=== PATIENT | female | born 1945 | race Caucasian/White ===

== ENCOUNTER 2019-01-26 13:02 | Inpatient (IN) | payer OTHER ==
[2019-01-26] MEDS ORDERED: NS 1,000 ML IV ONE (13:08)
--- NOTE | 2019-01-26 13:12 | EDPHY ---
H & P Time Seen by Provider: 01/26/19 13:08 HPI/ROS: CHIEF COMPLAINT: Right arm and hip pain HISTORY OF PRESENT ILLNESS: The patient is a 73-year-old female who fell off of 2 steps at her daughter's house. She is complaining of right shoulder and hip pain. When paramedics arrived she was lying face down and they state that her shoulder looked deformed however when they rolled her over it seemed to self reduce. She has also been complaining of right hip pain with any movement of her right leg. It is not shortened or rotated. She states that she hit her head slightly but is not concerned about it. No neck pain. She has a history of rheumatoid arthritis, crest syndrome and rectal incontinence. Her record has atrial fibrillation listed but the patient denies this. She is not on any blood thinners. Severity: Moderate Modifying factors: None REVIEW OF SYSTEMS: Constitutional: denies: chills, fever, recent illness, recent injury EENTM: denies: blurred vision, double vision, nose congestion Respiratory: denies: cough, shortness of breath Cardiac: denies: chest pain, irregular heart rate, lightheadedness, palpitations Gastrointestinal/Abdominal: denies: abdominal pain, diarrhea, nausea, vomiting, blood streaked stools Genitourinary: denies: dysuria, frequency, hematuria, pain Musculoskeletal: See HPI Skin: denies: lesions, rash, jaundice, bruising Neurological: denies: headache, numbness, paresthesia, tingling, dizziness, weakness Hematologic/Lymphatic: denies: blood clots, easy bleeding, easy bruising Immunologic/allergic: denies: HIV/AIDS, transplant 10 systems reviewed and negative except as noted EXAM: GENERAL: Well-appearing, well-nourished and in no acute distress. HEAD: Atraumatic, normocephalic. EYES: Pupils equal round and reactive to light, extraocular movements intact, sclera anicteric, conjunctiva are normal. ENT: TMs normal, nares patent, oropharynx clear without exudates. Moist mucous membranes. NECK: Normal range of motion, supple without lymphadenopathy or JVD. LUNGS: Breath sounds clear to auscultation bilaterally and equal. No wheezes rales or rhonchi. HEART: Regular rate and rhythm without murmurs, rubs or gallops. ABDOMEN: Soft, nontender, normoactive bowel sounds. No guarding, no rebound. No masses appreciated. BACK: No CVA tenderness, no spinal tenderness, step-offs or deformities EXTREMITIES: Right distal humerus pain with movement of her right arm. No swelling or deformity of the shoulder. No tenderness. No clavicular tenderness. Normal range of motion of wrist and forearm. Right hip pain with rotation. No pain with axial loading. Not shortened. Normal pulses and sensation distally. NEUROLOGICAL: Cranial nerves II through XII grossly intact. Normal speech. 5/ 5 strength, normal movement in all extremities, normal sensation, normal reflexes PSYCH: Normal mood, normal affect. SKIN: Warm, dry, normal turgor, no visible rashes or lesions. Source: Patient Exam Limitations: No limitations - Medical/Surgical History Hx Asthma: No Hx Chronic Respiratory Disease: No Hx Diabetes: No Hx Cardiac Disease: No Hx Renal Disease: No Hx Cirrhosis: No Hx Alcoholism: No Hx HIV/AIDS: No Hx Splenectomy or Spleen Trauma: No Other PMH: HTN, A-fib, Hysterectomy, Thyroid CA, Melanoma, rheum. arth, crest syndrome, fibromyalgia - Family History Significant Family History: No pertinent family hx - Social History Smoking Status: Never smoked Alcohol Use: Sober Drug Use: None Constitutional: Initial Vital Signs Temperature (C) 36.6 C 01/26/19 13:12 Heart Rate 65 01/26/19 13:12 Respiratory Rate 16 01/26/19 13:12 Blood Pressure 163/92 H 01/26/19 13:12 O2 Sat (%) 95 01/26/19 13:12 O2 Delivery Mode Nasal Cannula O2 (L/minute) 5 Allergies/Adverse Reactions: hydrocodone [From Vicodin] Allergy (Verified 01/26/19 19:53) Nausea Home Medications: Medication Instructions Recorded Lansoprazole [Prevacid] 30 mg PO DAILY 04/12/15 Levothyroxine [Synthroid 137 mcg 137 mcg PO DAILY06 04/12/15 (*)] Losartan/Hydrochlorothiazide 1 each PO DAILY 04/12/15 [Losartan-Hctz 100-25 mg Tab] Potassium Cl [Klor-Con 10 meq (RX)] 10 meq PO DAILY 04/12/15 Acetaminophen [Tylenol ES 500 mg 1,000 mg PO Q6 PRN 01/26/19 (*)] Escitalopram Oxalate [Lexapro] 20 mg PO HS 01/26/19 Hydrocortisone [Cortef 10 mg (*)] 10 mg PO BID 01/26/19 Hydroxychloroquine Sulfate 200 mg PO BID 01/26/19 [Plaquenil 200 mg (*)] Pregabalin [Lyrica 75mg (*)] 225 mg PO HS 01/26/19 Sulfamethox/Tmp 800/160 mg 1 tab PO BID 01/26/19 [Bactrim Ds] celeCOXIB [Celebrex (*)] 200 mg PO BID 01/26/19 Medical Decision Making - Diagnostics Imaging: Discussed imaging studies w/ scallop cutter machine Radiologist ED Course/Re-evaluation: 1:50 p.m. I discussed the case with Dr. Fish who will plan to take the patient to the operating room this afternoon for her right hip. Right arm to be placed in a sling. Have paged hospitalist service for admission. Patient's last meal was last night. Did drink coffee this morning. 2:05 p.m. discussed the case with Dr. Bonilla who will admit. Differential Diagnosis: Partial list of the Differential diagnosis considered include but were not limited to; hip fracture, humerus fracture, shoulder dislocation, clavicle injury and although unlikely based on the history and physical exam, I also considered head injury, neck injury. - Data Points Laboratory Results: Laboratory Results 01/26/19 13:46 01/26/19 13:46 Medications Given: Acetaminophen (Tylenol) 650 mg PO Q4HRS PRN PRN Reason: Pain, Mild/Fever, Can Take PO Stop: 07/25/19 15:00 Last Admin: 01/27/19 18:11 Dose: 650 mg Hydrocodone Bitart/Acetaminophen ([place] 5/325) 1 - 2 tab PO Q4HRS PRN PRN Reason: Pain, Moderate Able to Take PO Stop: 02/05/19 15:00 Last Admin: 01/27/19 02:19 Dose: 1 tab Escitalopram Oxalate (Lexapro) 20 mg PO HS SOFI Stop: 07/25/19 20:59 Last Admin: 01/26/19 22:04 Dose: Not Given HCTZ/Losartan Potassium (Hyzaar 50/12.5) 2 tab PO DAILY SOFI Stop: 07/26/19 08:59 Last Admin: 01/27/19 09:07 Dose: Not Given Hydrocortisone (Cortef) 10 mg PO BID SOFI Stop: 07/25/19 20:59 Last Admin: 01/27/19 09:05 Dose: 10 mg Hydromorphone HCl (Dilaudid) 0.2 - 0.4 mg IVP Q2H PRN PRN Reason: Pain, Severe Unable to Take PO Stop: 02/05/19 15:00 Last Admin: 01/26/19 23:28 Dose: 0.2 mg Hydroxychloroquine Sulfate (Plaquenil) 200 mg PO BID SOFI PRN Reason: Protocol Stop: 02/25/19 20:59 Last Admin: 01/27/19 09:06 Dose: 200 mg Sodium Chloride (Ns) 1,000 mls @ 100 mls/hr IV CONT SOFI Stop: 07/25/19 15:14 Last Admin: 01/27/19 04:52 Dose: 1,000 mls Levothyroxine Sodium (Synthroid) 137 mcg PO DAILY06 SOFI Stop: 07/26/19 05:59 Last Admin: 01/27/19 06:26 Dose: 137 mcg Lorazepam (Ativan) 0.5 - 1 mg PO Q8HRS PRN PRN Reason: Anxiety, Able to Take PO Stop: 07/25/19 15:00 Last Admin: 01/27/19 09:22 Dose: 0.5 mg Oxycodone HCl (Oxycodone Ir) 5 - 10 mg PO Q3HRS PRN PRN Reason: Pain, Severe Able to Take PO Stop: 02/05/19 15:00 Last Admin: 01/27/19 18:10 Dose: 5 mg Pantoprazole Sodium (Protonix) 40 mg PO DAILY SOFI Stop: 07/26/19 08:59 Last Admin: 01/27/19 07:43 Dose: 40 mg Potassium Chloride (Klor-Con) 10 meq PO DAILY SOFI Stop: 07/26/19 08:59 Last Admin: 01/27/19 09:22 Dose: Not Given Pregabalin (Lyrica) 225 mg PO HS SOFI Stop: 07/25/19 20:59 Last Admin: 01/26/19 22:04 Dose: Not Given Trimethoprim/Sulfamethoxazole (Bactrim Ds) 1 ea PO BID SOFI PRN Reason: Protocol Stop: 02/25/19 20:59 Last Admin: 01/27/19 09:08 Dose: 1 ea Discontinued Medications Albuterol (Proventil Neb) 3 ml IH ONCE ONE Stop: 01/26/19 23:36 Last Admin: 01/26/19 22:42 Dose: 3 ml Albuterol/Ipratropium (Duoneb) 3 ml IH Q6HRS [facility] Stop: 07/25/19 17:59 Last Admin: 01/27/19 11:51 Dose: Not Given Bacitracin (Bacitracin Ointment Tube) Confirm Administered Dose 14.2 barbara TP .STK -MED ONE Stop: 01/26/19 21:49 Last Admin: 01/26/19 22:05 Dose: Not Given Bupivacaine HCl/Epinephrine Bitart (Bupivacaine/Epi) Confirm Administered Dose 30 ml .ROUTE .STK-MED ONE Stop: 01/26/19 19:28 Last Admin: 01/26/19 21:49 Dose: 4 ml Hydromorphone HCl (Dilaudid) 1 mg IVP EDNOW ONE Stop: 01/26/19 13:51 Last Admin: 01/26/19 13:52 Dose: 1 mg Hydromorphone HCl (Dilaudid) 0.4 mg IVP ONCALL ONE Stop: 01/26/19 19:46 Last Admin: 01/26/19 19:33 Dose: 0.4 mg Sodium Chloride (Ns) 1,000 mls @ 0 mls/hr IV ONCE ONE; Wide Open PRN Reason: Protocol Stop: 01/26/19 13:09 Last Admin: 01/26/19 13:37 Dose: 1,000 mls Lactated Ringer's (Lr) 1,000 mls @ 0 mls/hr IV ONCE ONE PRN Reason: Per Protocol Stop: 01/26/19 18:19 Last Admin: 01/26/19 18:33 Dose: 1,000 mls Cefazolin Sodium/Dextrose (Ancef) 100 mls @ 200 mls/hr IV Q8H SOFI PRN Reason: Protocol Stop: 01/27/19 12:29 Last Admin: 01/27/19 11:43 Dose: 100 mls Cefazolin Sodium/Dextrose (Ancef) 100 mls @ 200 mls/hr IV ONCALL ONE Stop: 01/26/19 20:29 Last Admin: 01/26/19 21:44 Dose: 100 mls Lidocaine HCl (Xylocaine-Mpf 1% Sdv) Confirm Administered Dose 15 ml .ROUTE .STK -MED ONE Stop: 01/26/19 19:31 Last Admin: 01/26/19 21:50 Dose: 4 ml Lidocaine HCl (Xylocaine-Mpf 1% Sdv) Confirm Administered Dose 15 ml .ROUTE .STK -MED ONE Stop: 01/26/19 19:31 Last Admin: 01/26/19 23:52 Dose: Not Given Departure - Departure Disposition: [facility] Inpatient Acute Clinical Impression: Fracture of proximal end of right humerus Qualifiers: Encounter type: initial encounter Fracture type: closed Fracture morphology: unspecified fracture morphology Qualified Code(s): S42.201A - Unspecified fracture of upper end of right humerus, initial encounter for closed fracture Closed right hip fracture Qualifiers: Encounter type: initial encounter Qualified Code(s): S72.001A - Fracture of unspecified part of neck of right femur, initial encounter for closed fracture Condition: Fair
[2019-01-26] MEDS ORDERED: HYDROmorphONE/DILAUDID 1 MG/ML INJ ONE (13:42)
[2019-01-26] MEDS ORDERED: HYDROmorphONE/DILAUDID 2 MG/ML INJ IVP ONE ×2 (13:50→19:45)
[2019-01-26 13:53] LABS: PLATELET COUNT 240 10^3/uL (150-400)
[2019-01-26 14:04] LABS: INR 1.22 (0.83-1.16); PROTIME(PATIENT) 14.9 SEC (12.0-15.0)
[2019-01-26] MEDS ORDERED: ONDANSETRON 4 MG/2 ML VIAL IVP PRN (15:01)
[2019-01-26] MEDS ORDERED: ONDANSETRON DISINTEGRATING 4 MG TAB PO PRN (15:01)
[2019-01-26] MEDS ORDERED: LORazepam 0.5 MG TAB PO PRN (15:01)
[2019-01-26] MEDS ORDERED: PROMETHAZINE HCL 25 MG/ML INJ IVP PRN (15:01)
--- NOTE | 2019-01-26 15:19 | PDGENHP ---
History and Physical - Chief Complaint fall, arm/hip pain - History of Present Illness 73 yo F with PMH that includes RA, thyroid CA, HTN, HLD presenting after trip and fall with resultant right arm and leg pain found to have acute fractures of right femoral neck and right proximal humerus. She notes pain immediately after the fall that is only mildly improved after receiving pain medications. She did not have any chest pain or pre syncopal sxs preceding her fall, she thinks she may have hit her head slightly with the fall but no significant pain or obvious injuries and no LOC. She lives in [place] and is here visiting her daughter currently. She notes that otherwise her health has been fairly good, but she has been having issues with at least several months of SOB, particularly with exertion. She notes that this limits her ability to walk very far, but she is still able to do normal ADLs. She has seen her PCP for this, but states that he did not order any tests and told her she had a sinus infection and started a course of abx. She says she occasionally will notice wheezing on exhalation. She denies swelling in her legs, she denies orthopnea or PND, she denies any chronic lung or heart issues. History Information - Allergies/Home Medication List Allergies/Adverse Reactions: vicodin Allergy (Mild, Uncoded 01/26/19 14:39) Anxiety Home Medications: Lansoprazole [Prevacid] 30 mg PO DAILY 04/12/15 [Last Taken 01/26/19] Levothyroxine [Synthroid 137 mcg (*)] 137 mcg PO DAILY06 04/12/15 [Last Taken ] Losartan/Hydrochlorothiazide [Losartan-Hctz 100-25 mg Tab] 1 each PO DAILY 04/12 [Last Taken 01/26/19] Potassium Cl [Klor-Con 10 meq (RX)] 10 meq PO DAILY 04/12/15 [Last Taken ] Acetaminophen [Tylenol ES 500 mg (*)] 1,000 mg PO Q6 PRN 01/26/19 [Last Taken Unknown] Escitalopram Oxalate [Lexapro] 20 mg PO HS 01/26/19 [Last Taken 01/25/19] Hydrocortisone [Cortef 10 mg (*)] 10 mg PO BID 01/26/19 [Last Taken 01/26/19] Hydroxychloroquine Sulfate [Plaquenil 200 mg (*)] 200 mg PO BID 01/26/19 [Last Taken 01/26/19] Pregabalin [Lyrica 75mg (*)] 225 mg PO HS 01/26/19 [Last Taken 01/25/19] Sulfamethox/Tmp 800/160 mg [Bactrim Ds] 1 tab PO BID 01/26/19 [Last Taken ] celeCOXIB [Celebrex (*)] 200 mg PO BID 01/26/19 [Last Taken 01/25/19 21:00] I have personally reviewed and updated: family history, medical history, social history, surgical history - Past Medical History arthritis (rheumatoid on chronic steroids/immune suppression), cancer (thyroid) , GERD, hypertension, hyperlipidemia, migraines - Surgical History Reports: cancer surgery (thyroidectomy), hysterectomy Additional surgical history: shoulder surgery in April. finger and toe surgery for arthritis - Family History Positive for: non-pertinent - Social History Smoking Status: Former smoker Alcohol Use: Occasionally Drug Use: None Additional social history: , lives with her in [place], daughter lives here in [place] Review of Systems Review of Systems: ROS: 10pt was reviewed & negative except for what was stated in HPI & below Physical Exam Physical Exam: Temp Pulse Resp BP Pulse Ox 36.6 C 59 L 17 130/74 H 94 01/26/19 13:12 01/26/19 15:00 01/26/19 15:00 01/26/19 15:00 01/26/19 15:00 O2 (L/minute) 5 Constitutional: appears nourished, uncomfortable Eyes: PERRL, anicteric sclera Ears, Nose, Mouth, Throat: moist mucous membranes, hearing normal Cardiovascular: regular rate and rhythym, no murmur, rub, or gallop, No edema Respiratory: no respiratory distress, reduced air movement, expiratory wheeze Gastrointestinal: normoactive bowel sounds, soft, non-tender abdomen Genitourinary: no bladder tenderness Skin: warm, normal color Musculoskeletal: pain with ROM, No asymmetric calves Neurologic: AAOx3 Psychiatric: interacting appropriately, not anxious Lab Data & Imaging Review 01/26/19 13:46 01/26/19 13:46 WBC 6.90 10^3/uL (3.80-9.50) 01/26/19 13:46 RBC 4.99 10^6/uL (4.18-5.33) 01/26/19 13:46 Hgb 14.8 g/dL (12.6-16.3) 01/26/19 13:46 Hct 44.9 % (38.0-47.0) 01/26/19 13:46 MCV 90.0 fL (81.5-99.8) 01/26/19 13:46 MCH 29.7 pg (27.9-34.1) 01/26/19 13:46 MCHC 33.0 g/dL (32.4-36.7) 01/26/19 13:46 RDW 13.8 % (11.5-15.2) 01/26/19 13:46 Plt Count 240 10^3/uL (150-400) 01/26/19 13:46 MPV 12.1 fL (8.7-11.7) H 01/26/19 13:46 Neut % (Auto) 71.0 % (39.3-74.2) 01/26/19 13:46 Lymph % (Auto) 15.4 % (15.0-45.0) 01/26/19 13:46 [place] % (Auto) 10.1 % (4.5-13.0) 01/26/19 13:46 Eos % (Auto) 1.9 % (0.6-7.6) 01/26/19 13:46 Baso % (Auto) 0.7 % (0.3-1.7) 01/26/19 13:46 Nucleat RBC Rel Count 0.0 % (0.0-0.2) 01/26/19 13:46 Absolute Neuts (auto) 4.90 10^3/uL (1.70-6.50) 01/26/19 13:46 Absolute Lymphs (auto) 1.06 10^3/uL (1.00-3.00) 01/26/19 13:46 Absolute Monos (auto) 0.70 10^3/uL (0.30-0.80) 01/26/19 13:46 Absolute Eos (auto) 0.13 10^3/uL (0.03-0.40) 01/26/19 13:46 Absolute Basos (auto) 0.05 10^3/uL (0.02-0.10) 01/26/19 13:46 Absolute Nucleated RBC 0.00 10^3/uL (0-0.01) 01/26/19 13:46 Immature Gran % 0.9 % (0.0-1.1) 01/26/19 13:46 Immature Gran # 0.06 10^3/uL (0.00-0.10) 01/26/19 13:46 PT 14.9 SEC (12.0-15.0) 01/26/19 13:46 INR 1.22 (0.83-1.16) H 01/26/19 13:46 APTT 30.2 SEC (23.0-38.0) 01/26/19 13:46 Sodium 137 mEq/L (135-145) 01/26/19 13:46 Potassium 4.3 mEq/L (3.5-5.2) 01/26/19 13:46 Chloride 102 mEq/L (97-110) 01/26/19 13:46 Carbon Dioxide 21 mEq/l (22-31) L 01/26/19 13:46 Anion Gap 14 mEq/L (6-14) 01/26/19 13:46 BUN 14 mg/dL (7-23) 01/26/19 13:46 Creatinine 1.0 mg/dL (0.6-1.0) 01/26/19 13:46 Estimated GFR 55 01/26/19 13:46 Glucose 97 mg/dL (70-100) 01/26/19 13:46 Calcium 9.3 mg/dL (8.5-10.4) 01/26/19 13:46 Patient ABO/Rh O POSITIVE 01/26/19 13:46 Antibody Screen NEGATIVE 01/26/19 13:46 Visualized and Interpreted Chest x-ray results: Yes Chest X-Ray results: other (CM, diffuse interstitial prominence, CHF vs airways dz) Visualized and Interpreted imaging results: Yes Interpretation: hip xray; right min displaced femoral neck fx. arm xray: proximal humeral fx Assessment & Plan Assessment: Closed right hip fracture (Acute) Fracture of proximal end of right humerus (Acute) 73 yo F with PMH of RA on chronic steroids/chronic immune suppression, HTN, HLD and several months of wheezing and MCKEON presenting s/p mechanical fall with femoral neck and humeral fractures # right femoral neck fx: this will require surgical fixation, patient is c/o SOB /MCKEON that has been present for months and has not been treated, presenting with oxygen of 90% on RA and requiring 5L to maintain o2 in the low to mid 90s raising some concern for anesthesia however CXR and physical exam reassuring and given urgency do not feel that surgery must be delayed for further evaluation. ECG ordered Pain medications, pt/ot after surgery. Discussed possibility she would require snf given concurrent humeral fx. # right proximal humerus fracture: currently in a sling, ortho consulted and will determine if this will require surgical intervention, as above # hypoxia: patient notes she has had several months of SOB as above, currently on 5L of oxygen, CXR personally reviewed and interstitial prominence likely related to airways disease but mild CHF exacerbation also possible. Will monitor closely post op and order echo for further evaluation, had echo in 2014 with mild diastolic dysfunction but preserved EF and no sig valvular issues # RA: with chronic cortef and plaquenil use which will be continued as well as lyrica, will hold celebrex for now # HTN: continue losartan/hctz # s/p thyroidectomy: continue levothyroxine # GERD: continue PPI # IP status, will require > 48 hours care for eval/mgmt of above, may require SNF given upper and lower extremity injuries Patient new to my care. Old records reviewed and summarized as above. Care plan reviewed with ER doctor and further hx obtained from patients family present at bedside.
[2019-01-26] MEDS: NS 1,000 ML IV SCH (16:16)
[2019-01-26] MEDS: IPRATROPIUM/ALBUTEROL 3 ML DEYVIAL IH SCH (17:02)
--- NOTE | 2019-01-26 17:52 | PDMN ---
Medical Necessity Medical necessity: Pt meets IP criteria per MD & MCG; est los >2 mn for eval/tx of humerus fx & hip fx s/p fall, as well as hypoxia (requiring 5L to maintain O2 in low to mid 90s) w/concern for CHF vs airway disease; admit for further workup/monitoring, Ortho consult w/surgical intervention & therapies; hx RA on chronic steroids; per H&P & order 01/26/19
[2019-01-26] MEDS: HYDROmorphONE/DILAUDID 1 MG/ML INJ IVP PRN ×2 (17:59→23:28)
[2019-01-26] MEDS ORDERED: LR 1,000 ML IV ONE (18:18)
--- NOTE | 2019-01-26 19:16 | PDANEPAE ---
ANE History of Present Illness 73 year old with right hip fx ANE Past Medical History - Cardiovascular History Hx Hypertension: Yes - Pulmonary History Hx Oxygen in Use at Home: No Hx Sleep Apnea: No Sleep Apnea Screening Result - Last Documented: Positive - Endocrine History Hx Diabetes: No - Chronic Pain History Chronic Pain: Yes ANE Review of Systems Review of systems is: negative Review of Systems: ANE Patient History - Allergies Allergies/Adverse Reactions: vicodin Allergy (Mild, Uncoded 01/26/19 18:05) Anxiety - Home Medications Home Medications: Lansoprazole [Prevacid] 30 mg PO DAILY 04/12/15 [Last Taken 01/26/19] Levothyroxine [Synthroid 137 mcg (*)] 137 mcg PO DAILY06 04/12/15 [Last Taken ] Losartan/Hydrochlorothiazide [Losartan-Hctz 100-25 mg Tab] 1 each PO DAILY 04/12 [Last Taken 01/26/19] Potassium Cl [Klor-Con 10 meq (RX)] 10 meq PO DAILY 04/12/15 [Last Taken ] Acetaminophen [Tylenol ES 500 mg (*)] 1,000 mg PO Q6 PRN 01/26/19 [Last Taken Unknown] Escitalopram Oxalate [Lexapro] 20 mg PO HS 01/26/19 [Last Taken 01/25/19] Hydrocortisone [Cortef 10 mg (*)] 10 mg PO BID 01/26/19 [Last Taken 01/26/19] Hydroxychloroquine Sulfate [Plaquenil 200 mg (*)] 200 mg PO BID 01/26/19 [Last Taken 01/26/19] Pregabalin [Lyrica 75mg (*)] 225 mg PO HS 01/26/19 [Last Taken 01/25/19] Sulfamethox/Tmp 800/160 mg [Bactrim Ds] 1 tab PO BID 01/26/19 [Last Taken ] celeCOXIB [Celebrex (*)] 200 mg PO BID 01/26/19 [Last Taken 01/25/19 21:00] - NPO status NPO Since - Liquids (Date): 01/26/19 NPO Since - Liquids (Time): 09:00 NPO Since - Solids (Date): 01/25/19 NPO Since - Solids (Time): 19:00 - Smoking Hx Smoking Status: Former smoker - Alcohol Use Alcohol Use: Occasionally ANE Labs/Vital Signs - Labs Result Diagrams: 01/26/19 13:46 01/26/19 13:46 - Vital Signs Blood Pressure: 136/67 Heart Rate: 71 Respiratory Rate: 18 O2 Sat (%): 91 Height: 162.56 cm Weight: 63.503 kg ANE Physical Exam - Airway Neck exam: FROM Mallampati Score: Class 2 Mouth exam: normal dental/mouth exam - Pulmonary Pulmonary: no respiratory distress, clear to auscultation - Cardiovascular Cardiovascular: regular rate and rhythym - ASA Status ASA Status: II ANE Anesthesia Plan Anesthesia Plan: general endotracheal anesthesia
--- NOTE | 2019-01-26 19:19 | PDCONSULT ---
Applications Project Manager Note: Orthopedic Consult Note DOS: 01/26/2019 CC: Right shoulder and hip pain HPI: Called by ED to evaluate patient on floor. 73y LHD F fell on steps and had immediate right shoulder and Right hip pain. No LOC. NO assist at baseline. No hip pain at baseline. Has been having SOB for some time prior to this episode. Visiting from [place]. PMHx: Includes Thyroid cancer, RA, HLD, HTN PSHx: Includes Thyroidectomy, Left shoulder rotator cuff surgery Fam Hx: noncontributory Soc Hx: Nonsmoker. Retired. All: vicodin (anxiety) ROS: MSK, Respiratory, Neuro per HPI. Eyes - needs reading glasses. No current GI//Psych/HENT/CV issues. PE: AxOx3 On O2. RUE: SILT A/R/U/M. TTP proximal humerus. Minimal pain with elbow/wrist/Finger ROM. EPL/APB/FDS/FDP2,5/IO. 2+ radial RLE: TTP Right groin. SILT S/S/SP/DP/T + TA/GS/FHL/EHL. LUE: moving well. No TTP. LLE: SILT S/S/Sp/DP/T Imaging: Right hip radiographs shows Valgus impacted Right femoral neck fracture. Right Shoulder films show Right proximal humerus fracture, located. A/P: 73y F h/o Thyroid cancer, RA, HLD, HTN and on O2 p/w Right femoral neck fracture and Right proximal humerus fracture - NPO for Right hip OR tonight (Hip CRPP planned) - NWB RUE in sling. Out of sling 3x/day for elbow ROM. Plan for initial nonop treatment - Discussed nonop versus operative options for both injuries as well as associated risks and benefits. Discussed potential for facility stay postop.
[2019-01-26] MEDS ORDERED: BUPIVACAINE/EPI 0.25% 30 ML SDV ONE (19:27)
[2019-01-26] MEDS ORDERED: HYDROmorphONE/DILAUDID 2 MG/ML INJ ONE (19:27)
[2019-01-26] MEDS ORDERED: LIDOCAINE 1% 5 ML SDV ONE ×2 (19:30)
[2019-01-26] MEDS ORDERED: CEFAZOLIN 1 GM/DEXTROSE/50 ML BAG IV ONE (19:46)
[2019-01-26] MEDS ORDERED: CEFAZOLIN 2 GM/DEXTROSE/100 ML BAG IV ONE (19:49)
[2019-01-26] MEDS ORDERED: ceFAZolin 2 GM/DEXTROSE 100 ML IV ONE (20:00)
[2019-01-26] MEDS ORDERED: fentaNYL 250 MCG/5 ML INJ ONE (20:12)
[2019-01-26] MEDS ORDERED: PROPOFOL 200 MG/20 ML VIAL ONE (20:12)
[2019-01-26] MEDS ORDERED: BACITRACIN ZINC 0.5 OZ OINTTUBE TP ONE (21:48)
[2019-01-26] MEDS: ESCITALOPRAM OXALATE 10 MG TAB PO SCH (22:04)
[2019-01-26] MEDS: HYDROXYCHLOROQUINE SULFATE 200 MG TAB PO SCH (22:04)
[2019-01-26] MEDS: HYDROCORTISONE 10 MG TAB PO SCH (22:04)
[2019-01-26] MEDS: PREGABALIN 75 MG CAP PO SCH (22:04)
[2019-01-26] MEDS: SULFAMETHOX/TMP 800/160 MG 1 TAB PO SCH (22:05)
[2019-01-26] MEDS ORDERED: NALOXONE HCL 0.4 MG/ML INJ IVP PRN (22:13)
[2019-01-26] MEDS ORDERED: fentaNYL 100 MCG/2 ML INJ IVP PRN (22:13)
--- NOTE | 2019-01-26 22:13 | POSTOPPROG ---
Post Op Note Date of Operation: 01/26/19 Surgeon: Jordan Cruz Senior Manager Quality Assurance: n/a Anesthesia: GET(General Endotracheal) Pre-op Diagnosis: Right femoral neck fracture, impacted Post-op Diagnosis: Same Procedure: Right femoral neck percutaneous screw fixation Inf/Abcess present in the surg proc area at time of surgery?: No EBL: Minimal
--- NOTE | 2019-01-26 22:15 | POSTANESTH ---
Post Anesthetic Evaluation Cardiovascular Status: Normal, Stable Respiratory Status: Normal, Stable Level of Consciousness/Mental Status: Can Participate in Eval Pain Control: Adequate, Prn Tx Ordered Nausea/Vomiting Control: Adequate, Prn Tx Ordered Complications Possibly Related to Anesthesia: None Noted
--- NOTE | 2019-01-26 22:16 | SUROPNOTE ---
[facility] Operative Report - Surgery Operative Report DOS: 01/26/2019 Attg: Jordan Cruz MD Asst: None Preop Dx: Right femoral neck fracture, impacted Postop Dx: Same Procedure: Right pinning of femoral neck fracture Anesthesia: General Indication: 73y LHD F h/o thyroid cancer and thyroidectomy, RA, HTN p/w Right femoral neck fracture, valgus impacted as well as Right proximal humerus fracture Procedure Notes: Consent was reviewed with the patient and she elected to proceed. The patient was taken to OR and anesthesia was induced. She was transferred to the table. . The patient's operative leg was placed into the fracture table leg chamberlain, taking care to pad the foot and ankle. Care was taken not to apply distracting traction that could dislodge the fracture. The contralateral leg was flexed at the hip and knee and slightly internally rotated and secured with the leg chamberlain to allow the C-arm to image the Right hip. The leg was prepped and draped in the typical fashion. A timeout was performed to confirm the patient's identity, surgery, antibiotic status, and site. Imaging confirmed a valgus impacted femoral neck fracture without signs of distraction and with a continuous inferior cortical margin. The bony landmarks of the right proximal femur were palpated and marked out. A free guidewire was aligned with fluoro guidance along the intended path along the femoral neck, and a marker used to draw out that angle. The guide wire was then placed percutaneously along the lateral aspect of the femur and the starting point checked on fluoro. The guide wire was inserted along the inferior border of the femoral neck with a midline starting point (not distal to the lesser trochanter) and the tip placed just shy of the subchondral surface of the femoral head. The pin was checked on multiple views to ensure that it was not beyond the femoral head surface. A second pin was then placed under fluoroscopic guidance along the anterior aspect of the femoral neck and more proximal. The trajectory was set to be approximately parallel to the first pin.~Once this position was satisfactory, another pin was introduced along the posterior superior aspect of the femoral neck, again staying close to the border of the femoral neck to ensure the optimal spread of the pins. Pin position and configuration was checked on fluoroscopy.~ The pins were measured for 6.5 mm cannulated screws, partially threaded.~ The anterior pin was drilled first with a cannulated bit. The screw was then placed with a washer such that the threads were not protruding from the femoral head and the screw head and washer were firmly against the femoral cortex. Similarly, the inferior pin was drilled and another cannulated screw placed there with position checked on fluoroscopy. Finally, the posterior superior screw was drilled and the final screw and washer placed there. After configuration was confirmed on fluoroscopy and satisfactory, the surgical site was thoroughly irrigated. Subcutaneous skin was closed with 2-O vicryl sutures. Finally, the skin was closed with a series of trudi. A sterile dressing comprised of bacitracin, xeroform, gauze, and tegaderms placed over the hip wound. The patient was woken up from anesthesia after taken out of the fracture table positioning. She was transferred to the stretcher and taken to the PACU for further observation Count was correct at the conclusion of the case. I was present for the entirety of the case. Implants: Synthes 6.5mm Cannulated screws Complications: none EBL: 25cc Drain: None
[2019-01-26] MEDS ORDERED: ALBUTEROL 3 ML DEYVIAL ONE (22:38)
[2019-01-26] MEDS ORDERED: ALBUTEROL 3 ML DEYVIAL IH ONE (23:35)
[2019-01-27] MEDS: IPRATROPIUM/ALBUTEROL 3 ML DEYVIAL IH SCH ×3 (00:04→11:51)
[2019-01-27] MEDS: HYDROCODONE/APAP 5/325 TAB PO PRN (02:19)
[2019-01-27] MEDS: NS 1,000 ML IV SCH ×2 (02:25→04:52)
[2019-01-27] MEDS: ACETAMINOPHEN 325 MG TAB PO PRN ×3 (04:31→23:05)
[2019-01-27] MEDS: ceFAZolin 2 GM/DEXTROSE 100 ML IV SCH ×2 (04:46→11:43)
[2019-01-27 05:21] LABS: PLATELET COUNT 192 10^3/uL (150-400)
[2019-01-27] MEDS: LEVOTHYROXINE 137 MCG TAB PO SCH (06:26)
--- NOTE | 2019-01-27 07:14 | SOAPPROG ---
SOAP Progress Note Assessment/Plan: Assessment: 73y F h/o RA, thyroid ca, HTN p/w R proximal humerus fracture and Right femoral neck impacted fracture Plan: - Defer to primary team on workup of recent episodes of SOB and O2 requirement. Suspect that her SOB may have been a factor in her fall and merits some workup. - incentive spirometer - WBAT RLE - PT/OT - DVT ppx - Abx x 24 h postop (ancef IV) - Keep dressings clean and intact - RUE in sling for comfort. Out of sling 3x/day for elbow ROM - NWB RUE - Followup with Dr. Cruz in 14-21 days after surgery for wound check and shoulder check 01/27/19 07:22 Subjective: got to the bathroom twice with a lot of assistance in the evening. Having some pain, but currently comfortable Objective: Vital Signs Temp Pulse Resp BP Pulse Ox 36.7 C 68 14 149/73 H 94 01/27/19 04:22 01/27/19 06:13 01/27/19 06:13 01/27/19 04:22 01/27/19 06:13 Laboratory Results 01/27/19 04:55 01/27/19 04:55 01/26/19 01/27/19 01/28/19 05:59 05:59 05:59 Intake Total 1390 300 Output Total 1400 Balance -10 300 PT 14.9 SEC (12.0-15.0) 01/26/19 13:46 INR 1.22 (0.83-1.16) H 01/26/19 13:46 RUE: moving hand/elbow. In sling RLE: SILT S/S/SP/DP/T. 4+/5 TA/GS/EHL/FHL, WWP. Able to flex hip slightly. ICD10 Worksheet Patient Problems: Problems Problem Status Onset Closed right hip fracture Acute Fracture of proximal end of right humerus Acute Balance disorder Acute Incontinence of bowel Acute Lacunar stroke Acute Paresthesia Acute Status migrainosus Acute
[2019-01-27] MEDS: PANTOPRAZOLE SODIUM 40 MG TAB PO SCH (07:43)
[2019-01-27] MEDS: oxyCODONE IR 5 MG TAB PO PRN ×3 (09:02→18:10)
[2019-01-27] MEDS: HYDROCORTISONE 10 MG TAB PO SCH ×2 (09:05→20:37)
[2019-01-27] MEDS: HYDROXYCHLOROQUINE SULFATE 200 MG TAB PO SCH ×2 (09:06→20:37)
[2019-01-27] MEDS: LOSARTAN/HCTZ 50/12.5 1 TAB PO SCH (09:07)
[2019-01-27] MEDS: POTASSIUM CL 10 MEQ TAB PO SCH ×3 (09:08→09:22)
[2019-01-27] MEDS: SULFAMETHOX/TMP 800/160 MG 1 TAB PO SCH ×2 (09:08→20:36)
[2019-01-27] MEDS ORDERED: MAGNESIUM HYDROXIDE 30 ML UDCUP PO PRN (10:55)
[2019-01-27] MEDS ORDERED: LACTULOSE 20 GM/30 ML UDCUP PO PRN (10:55)
[2019-01-27] MEDS ORDERED: POLYETHYLENE GLYCOL 3350 17 GM PKT PO PRN (10:55)
[2019-01-27] MEDS ORDERED: BISACODYL 10 MG SUPP PR PRN (10:55)
--- NOTE | 2019-01-27 14:22 | HOSPPROG ---
Hospitalist Progress Note Assessment/Plan: 73 yo F with PMH of RA on chronic steroids/chronic immune suppression, HTN, HLD and several months of wheezing and MCKEON presenting s/p mechanical fall with femoral neck and humeral fractures # right femoral neck fx: -POD #1 #SOB -presenting with oxygen of 90% on RA -requiring 3L to maintain o2 in the low to mid 90s -CXR and physical exam stable # right proximal humerus fracture: -currently in a sling, -ortho consulted # hypoxia: -patient notes she has had several months of SOB as above, -currently on 3L of oxygen, -CXR personally reviewed, airways disease -hx of AVM -will follow up at [facility] -ECHO ordered -had echo in 2014 with mild diastolic dysfunction but preserved EF and no sig valvular issues # RA: -with chronic cortef and plaquenil use which will be continued as well as lyrica , will hold celebrex for now # HTN: -continue losartan/hctz # s/p thyroidectomy: -continue levothyroxine # GERD: - continue PPI # IP status, will require > 48 hours care for eval/mgmt of above, may require SNF given upper and lower extremity injuries D/W CM. Rec inpt rehab vs SNF Subjective: Still having significant pain. Feels better with oxygen. Objective: Vital Signs Temp Pulse Resp BP Pulse Ox 36.7 C 64 15 118/58 L 91 L 01/27/19 11:50 01/27/19 11:50 01/27/19 11:50 01/27/19 11:50 01/27/19 11:50 Laboratory Results 01/27/19 04:55 01/27/19 04:55 01/26/19 01/27/19 01/28/19 05:59 05:59 05:59 Intake Total 1390 800 Output Total 1400 400 Balance -10 400 PT 14.9 SEC (12.0-15.0) 01/26/19 13:46 INR 1.22 (0.83-1.16) H 01/26/19 13:46 - Physical Exam Constitutional: appears nourished, chronically ill appearing, uncomfortable Eyes: PERRL, anicteric sclera, EOMI Ears, Nose, Mouth, Throat: moist mucous membranes, hearing normal, ears appear normal Cardiovascular: No JVD, No tachycardia, No edema Respiratory: no respiratory distress, no rales or rhonchi, reduced air movement Gastrointestinal: normoactive bowel sounds, No tenderness, No ascites Skin: warm, No mottled, No erythema Musculoskeletal: joint tenderness, pain with ROM, generalized weakness, No normal joint ROM Neurologic: AAOx3 Psychiatric: not anxious, not encephalopathic, thought process linear ICD10 Worksheet Patient Problems: Problems Problem Status Onset Balance disorder Acute Paresthesia Acute Incontinence of bowel Acute Status migrainosus Acute Lacunar stroke Acute Fracture of proximal end of right humerus Acute Closed right hip fracture Acute
--- NOTE | 2019-01-27 14:51 | ASMTCMCOM ---
CM Note CM Note Notes: CM met with pt, and daughter. Pt is a 73- year old who came in because she fell. Pt has an acute fractures of right femoral neck and right proximal humerus. Pt lives in [place] but was visiting her family in [place]. Therapy and doc recommend inpatient. CM left message for [facility] Inpatient [facility] and sent a referral through [facility]. If she is not accepted then CM put in a referral to [facility]. Pasrr was completed. CM to follow. Plan:[facility] Inpatient or [facility] Date Signed: 01/27/2019 02:50 PM Electronically Signed By:Mara Glez
[2019-01-27] MEDS ORDERED: IPRATROPIUM/ALBUTEROL 3 ML DEYVIAL IH PRN (17:30)
[2019-01-27] MEDS: PREGABALIN 75 MG CAP PO SCH (20:36)
[2019-01-27] MEDS: ESCITALOPRAM OXALATE 10 MG TAB PO SCH (20:37)
[2019-01-27] MEDS: SENNOSIDES/DOCUSATE SODIUM TAB PO SCH (20:37)
[2019-01-28] MEDS: HYDROCODONE/APAP 5/325 TAB PO PRN (01:44)
[2019-01-28] MEDS: LEVOTHYROXINE 137 MCG TAB PO SCH (05:07)
[2019-01-28] MEDS: oxyCODONE IR 5 MG TAB PO PRN ×2 (09:16→14:54)
[2019-01-28] MEDS: PANTOPRAZOLE SODIUM 40 MG TAB PO SCH (09:17)
[2019-01-28] MEDS: HYDROXYCHLOROQUINE SULFATE 200 MG TAB PO SCH ×2 (09:17→20:19)
[2019-01-28] MEDS: LOSARTAN/HCTZ 50/12.5 1 TAB PO SCH (09:18)
[2019-01-28] MEDS: HYDROCORTISONE 10 MG TAB PO SCH ×2 (09:18→20:19)
[2019-01-28] MEDS: SENNOSIDES/DOCUSATE SODIUM TAB PO SCH ×2 (09:20→20:20)
[2019-01-28] MEDS: POTASSIUM CL 10 MEQ TAB PO SCH (09:22)
[2019-01-28] MEDS: SULFAMETHOX/TMP 800/160 MG 1 TAB PO SCH ×2 (09:22→20:19)
--- NOTE | 2019-01-28 09:52 | ECHO ---
[email or web address] [address] [address] Main: [phone] Echocardiography Examination Transthoracic Name: INDIRA HATCH MR#: [id number] Study Date: 01/27/2019 Study Time: 05:36 PM Date of : 1945 Age: 73 year(s) Height: 162.6 cm (64 in.) Weight: 66.68 kg (147 lb.) BSA: 1.72 m2 Gender: Female Examination: Echo Contrast: Image Quality: Adequate Rhythm: Heart Rate: BP: 138 mmHg/74 mmHg Indication: Shortness of breath Procedure Staff Referring Physician: Casting Plug Assembler: Denise Sarmiento RUST Reading Physician: Fei Matthews MD Requesting Provider: Ordering Physician: Mackenzie Stoner Indication: Shortness of breath Measurements Chambers AV/MV Label Value Normal Value Label Value Normal Value LVOTd 1.9 cm (1.8cm - 2cm) AV PGmax 11 mmHg LVOT VTI 22.6 cm (18cm - 22cm) AV PGmean 6 mmHg LVDd, 2D 4.1 cm (3.9cm - 5.3cm) AV Vmax 1.64 m/s LVDs, 2D 2.6 cm (2.1cm - 4cm) SAHIL (VTI) 2 cm2 IVSd, 2D 1.2 cm (0.6cm - 1.1cm) MV E Vmax 0.68 m/s LVPWd, 2D 1 cm MV A Vmax 0.98 m/s LVEF, BP 61 % (55% - 70%) MV E/A 0.69 LVEF, 2D 65 % (54% - 74%) MV E/E' lateral 8.6 LVOT PGmean 3 mmHg MV E/E' septal 13.2 (0.45 - 1.25) LVOT Vmean 0.79 m/s MV DT 317 ms RVDd, 2D 3.4 cm (1.9cm - 3.8cm) MV E' septal 0.05 m/s LA Volume, BP 73 ml (22ml - 52ml) MV PHT 0.1 s LADs, 2D 2.6 cm (2.7cm - 3.8cm) MVA PHT 2.3 cm2 LAESV index, BP 42.4 ml/m2 MV E' lateral 0.08 m/s RA Area 26.3 cm2 MV E/E' mean 10.46 Additional Vessels MV PHT 97 ms Label Value Normal Value MV E' mean 0.06 m/s AoAsc 3.1 cm TV/PV AoRoot, 2D 2.5 cm (1.4cm - 2.6cm) Label Value Normal Value Patient: INDIRA HATCH Study Date: 01/27/2019 Page 1 of 3 05:36 PM IVC 1.4 cm (1.2cm - 2.3cm) RA Pressure 5 mmHg RVSP 74 mmHg TR Pmax 69 mmHg TR Vmax 4.52 m/s PV PGmax 4 mmHg PV Vmax, Caliper 0.96 m/s (0.6m/s - 0.9m/s) Conclusions Normal LV systolic function, measured LVEF 61%. Grade 2 diastolic dysfunction. Moderate left atrial enlargement. Moderate to severe right atrial enlargement. Moderate to severe mitral regurgitation. Mild to moderate tricuspid regurgitation. Estimated RVSP 74 MMHG c.w. severe pulmonary hypertension. Findings Left Ventricle: Left ventricle is normal in size. Normal global systolic left ventricular function. The ejection fraction, measured by Simpsons method, is 61 %. EF range is estimated at 60 % - 65 %. There is asymmetrical septal hypertrophy. There are no regional wall motion abnormalities. Grade II Diastolic Dysfunction. Right Ventricle: Dilated right ventricle. The RV function appears grossly normal. Left Atrium: The left atrium is moderately dilated. Right Atrium: The right atrium is moderately to severely dilated. Aortic Valve: Aortic leaflets are structurally normal. Trivial aortic regurgitation is present. There is no aortic stenosis. There is aortic sclerosis present. Tricuspid Valve: Tricuspid valve leaflets ae structurally normal. Mild to moderate tricuspid regurgitation. No tricuspid valve stenosis. Right Ventricular systolic pressure is measured at 74 mmHg. Pulmonary artery pressure severely increased. Pulmonic Valve: Pulmonic leaflets are structurally normal. Mild pulmonic valve regurgitation is present. Aorta: The aortic root size in 2D measures 2.5 cm. The ascending aorta measures 3.1 cm. Aorta Measurements AoRoot, 2D is 2.5 cm. IVC: The inferior vena cava is normal in size. Pericardium: A pericardial fat pad is present. No pericardial effusion. No pleural effusion present. Exam Details Procedure Ordered: Echo Procedure Status: Routine study Image Quality: Adequate Facility Location: Cardiac Echo 1 (No Signature Object) Patient: INDIRA HATCH Study Date: 01/27/2019 Page 2 of 3 05:36 PM Patient: INDIRA HATCH Study Date: 01/27/2019 Page 3 of 3 05:36 PM [id number]
--- NOTE | 2019-01-28 11:30 | SOAPPROG ---
SOAP Progress Note Assessment/Plan: Assessment: 73y F h/o RA, thyroid ca, HTN p/w R proximal humerus fracture and Right femoral neck impacted fracture Plan: - Echo has been done to workup SOB and O2 requirement. Suspect that her SOB may have been a factor in her fall and merits some workup. - incentive spirometer - WBAT RLE - PT/OT - DVT ppx - Abx x 24 h postop (ancef IV) - Keep dressings clean and intact - RUE in sling for comfort. Out of sling 3x/day for elbow ROM - NWB RUE - Followup with Dr. Cruz in 14-21 days after surgery for wound check and shoulder check 01/28/19 11:27 Subjective: pain controlled. had echo done. Mobilizing better (needs one person assist instead of two now) Objective: Vital Signs Temp Pulse Resp BP Pulse Ox 36.6 C 74 18 126/77 H 90 L 01/28/19 07:59 01/28/19 07:59 01/28/19 07:59 01/28/19 07:59 01/28/19 07:59 Laboratory Results 01/27/19 04:55 01/27/19 04:55 01/27/19 01/28/19 01/29/19 05:59 05:59 05:59 Intake Total 1390 2600 Output Total 1400 2500 400 Balance -10 100 -400 PT 14.9 SEC (12.0-15.0) 01/26/19 13:46 INR 1.22 (0.83-1.16) H 01/26/19 13:46 RLE: CDI dressing. SILT S/S/Sp/DP/T. 5/5 TA/GS/EHL/FHL. Moderate pain with log roll. WWP RUE: in sling. moving fingers and wrist well. ICD10 Worksheet Patient Problems: Problems Problem Status Onset Closed right hip fracture Acute Fracture of proximal end of right humerus Acute Balance disorder Acute Incontinence of bowel Acute Lacunar stroke Acute Paresthesia Acute Status migrainosus Acute
--- NOTE | 2019-01-28 11:42 | HOSPPROG ---
Hospitalist Progress Note Assessment/Plan: 73 yo F with PMH of RA on chronic steroids/chronic immune suppression, HTN, HLD and several months of wheezing and MCKEON presenting s/p mechanical fall with femoral neck and humeral fractures # right femoral neck fx: -POD #2 #SOB -presenting with oxygen of 90% on RA -requiring 3L to maintain o2 in the low to mid 90s -CXR and physical exam stable -ECHO abnormal # right proximal humerus fracture: -currently in a sling, -ortho consulted # hypoxia: -patient notes she has had several months of SOB as above -currently on 3L of oxygen, -CXR personally reviewed, airways disease -hx of AVM -will follow up at [facility] -ECHO abnormal, consult cardiology -had echo in 2014 with mild diastolic dysfunction but preserved EF and no sig valvular issues # RA: -with chronic cortef and plaquenil use which will be continued as well as lyrica , will hold celebrex for now # HTN: -continue losartan/hctz # s/p thyroidectomy: -continue levothyroxine # GERD: - continue PPI # IP status, will require > 48 hours care for eval/mgmt of above, may require SNF given upper and lower extremity injuries D/W CM. Rec inpt rehab vs SNF D/W cardiology and Dr Cruz Subjective: Feeling better today. Less pain. Objective: Vital Signs Temp Pulse Resp BP Pulse Ox 36.7 C 63 15 123/69 H 93 01/28/19 11:19 01/28/19 11:19 01/28/19 11:19 01/28/19 11:19 01/28/19 11:19 Laboratory Results 01/27/19 04:55 01/27/19 04:55 01/27/19 01/28/19 01/29/19 05:59 05:59 05:59 Intake Total 1390 2600 Output Total 1400 2500 800 Balance -10 100 -800 PT 14.9 SEC (12.0-15.0) 01/26/19 13:46 INR 1.22 (0.83-1.16) H 01/26/19 13:46 - Physical Exam Constitutional: no apparent distress, appears nourished, uncomfortable Eyes: PERRL, anicteric sclera, EOMI Ears, Nose, Mouth, Throat: moist mucous membranes, hearing normal, ears appear normal Cardiovascular: regular rate and rhythym, No JVD, No edema Respiratory: no respiratory distress, no rales or rhonchi, reduced air movement Gastrointestinal: normoactive bowel sounds, No tenderness, No ascites Skin: warm, normal color, No mottled Musculoskeletal: no joint effusions, joint tenderness, pain with ROM, generalized weakness Neurologic: AAOx3 Psychiatric: interacting appropriately, not anxious, not encephalopathic, thought process linear ICD10 Worksheet Patient Problems: Problems Problem Status Onset Balance disorder Acute Paresthesia Acute Incontinence of bowel Acute Status migrainosus Acute Lacunar stroke Acute Fracture of proximal end of right humerus Acute Closed right hip fracture Acute
[2019-01-28] MEDS: ENOXAPARIN 40 MG/0.4 ML SYR SC SCH (12:14)
[2019-01-28] MEDS ORDERED: FUROSEMIDE 40 MG/4 ML VIAL IVP ONE (14:03)
[2019-01-28] MEDS: ACETAMINOPHEN 325 MG TAB PO PRN ×2 (14:53→22:56)
--- NOTE | 2019-01-28 16:44 | GCON ---
[f rep st] CONSULTATION DATE OF CONSULTATION: 01/28/2019 INDICATIONS: We are asked by Mackenzie Dowling, nurse practitioner, to see the patient due to abnormal echo demonstrating pulmonary hypertension, moderate to severe MR, diastolic dysfunction with a history of shortness of breath over last year and increased oxygen saturations post hip surgery. HISTORY OF PRESENT ILLNESS: The patient is a 73-year-old woman who presented after a mechanical fall which resulted in a femoral neck and humeral fracture. Dr. Cruz did surgery on January 26, pinning femoral neck fracture. She also has a fractured right arm requiring a sling only, for 6 weeks. She reports she was not looking where she was going and she missed a step and fell. Oxygen requirements were increased. She needs 3 L of O2 to keep oxygen above 90%. An echocardiogram was ordered which demonstrated severe pulmonary hypertension, moderate to severe MR and diastolic dysfunction. She reports that for about the past year she has experienced increased dyspnea on exertion. She has to stop her usual activities to catch her breath. She denies any chest pain, pressure, or tightness. She does report a history of palpitations that are described as skipped beats. She denies any racing or irregular fast heart rates. She denies any lower extremity edema, orthopnea. She does report abdominal bloating; however, this seems to be related to her diet. She does have episodes where she feels like she may faint and loses her balance. She has not had beth syncope. She denies any history of COPD, although she did have MANN in the lung and was treated for 2 years down at [facility] which was in the mid . Currently, she is resting comfortably without any shortness of breath, lying in bed with oxygen on. PAST MEDICAL HISTORY: Hypertension, hyperlipidemia, MANN in the , GERD, migrainous disorder, questionable TIAs, thyroid cancer and rheumatoid arthritis. MEDICATIONS: Home medications: Prevacid 30 mg daily. Levothyroxine 137 mcg daily. Losartan/hydrochlorothiazide 100/25 mg daily. Potassium 10 mEq daily. Lexapro 20 mg daily. Cortef 10 mg daily. Plaquenil 200 mg twice daily. Lyrica 225 mg at bedtime. Bactrim 1 tablet twice daily. Celebrex 200 mg daily. ALLERGIES: She has a mild reaction to Vicodin causing anxiety. SOCIAL HISTORY: She is . She lives in [place] with her . She has a daughter in [place]. They previously lived in [place], [place]. She is a retired school vocational educator. She smoked for 15 years, but quit over 30 years ago, and she has an occasional alcoholic drink. REVIEW OF SYSTEMS: See HPI. In addition to that: GI; positive for rectal incontinence, negative for melena or hematochezia or abdominal pain. Neurological; balance disorder for at least the last 4 years resulting in near falls and occasional falls. LAB WORK: WBC is 9.81, hemoglobin 12.9, hematocrit 41, platelets 192. Sodium 137, potassium 4.3, chloride 103, bicarb 21, BUN 11, creatinine 0.8, glucose 155. GFR greater than 60. EKG on January 26 demonstrates sinus damaris at 59 beats per minute with nonspecific ST wave changes in the inferior leads with inverted T-waves in V1 through V3. QTc slightly prolonged at 460 milliseconds. This is unchanged from EKG that was done in April of 2015. Telemetry: Sinus rhythm with occasional PVCs. Echocardiogram demonstrates ejection fraction of 61%, grade 2 diastolic dysfunction, moderate left atrial enlargement, moderate to severe right atrial enlargement, moderate to severe MR, [id number] TR, estimated RVSP of 74 mmHg consistent with severe pulmonary hypertension. PHYSICAL EXAM: VITAL SIGNS: Blood pressure is 123/69, pulse is 63, respirations 15, temperature is 36.7, O2 saturation on 3 L is 93%. GENERAL: She is alert and oriented, in no acute distress, lying in bed comfortably. NECK : Supple. No JVD. No carotid bruits. CARDIAC: Regular rate and rhythm with a 1/6 systolic murmur at the left sternal border. ABDOMEN: Soft and nontender. LUNGS: Clear to auscultation with some mild crackles in the bases. EXTREMITIES: Warm. No discoloration. Mild lower extremity edema bilaterally. ASSESSMENT AND PLAN: 1. Grade 2 diastolic dysfunction with severe pulmonary hypertension with estimated RVSP of 74 mmHg, last measurement was in 2014 and was 34 mmHg. She denies any history of sleep apnea. She does report a negative sleep study about 3 years ago. She denies any history of COPD or lung disease other than the MANN in the . This may be related to severe MR. Plan for diuresis . 2. Moderate to severe mitral regurgitation. This is worse than previously noted on echo in 2015 that noted trace MR. May likely be contributing to her history of MCKEON in conjunction with the pulmonary hypertension. Plan to IV diurese and re-evaluate with an echocardiogram once she is euvolemic. Will start with IV Lasix 40 mg 1 time today and continue with p.o. She will need further evaluation in the future likely with a right and left heart catheterization after she has recovered from her hip surgery. She is hoping to go to the rehab unit here at [facility] to recover. Will check a BMP and a BNP in the morning. 3. History of thyroid cancer with levothyroxine replacement. We will add TSH to lab work in the morning. 4. Hip surgery, POD 2 Patient history, assessment and plan were all reviewed with Dr. Matthews. 60 minutes was spent with patient and reviewing records. /[id number]/MODL MTDD
[2019-01-28] MEDS: PREGABALIN 75 MG CAP PO SCH (20:19)
[2019-01-28] MEDS: ESCITALOPRAM OXALATE 10 MG TAB PO SCH (20:20)
[2019-01-29] MEDS: LEVOTHYROXINE 137 MCG TAB PO SCH (05:18)
[2019-01-29] MEDS: ENOXAPARIN 40 MG/0.4 ML SYR SC SCH (08:26)
[2019-01-29] MEDS: HYDROCORTISONE 10 MG TAB PO SCH ×2 (08:28→20:18)
[2019-01-29] MEDS: FUROSEMIDE 40 MG TAB PO SCH ×2 (08:29→15:48)
[2019-01-29] MEDS: LOSARTAN/HCTZ 50/12.5 1 TAB PO SCH (08:31)
[2019-01-29] MEDS: HYDROXYCHLOROQUINE SULFATE 200 MG TAB PO SCH ×2 (08:31→20:18)
[2019-01-29] MEDS: PANTOPRAZOLE SODIUM 40 MG TAB PO SCH (08:32)
[2019-01-29] MEDS: POTASSIUM CL 10 MEQ TAB PO SCH (08:32)
[2019-01-29] MEDS: SULFAMETHOX/TMP 800/160 MG 1 TAB PO SCH ×2 (08:32→20:19)
--- NOTE | 2019-01-29 08:54 | SOAPPROG ---
SOAP Progress Note Assessment/Plan: Assessment: 73y F h/o RA, thyroid ca, HTN p/w R proximal humerus fracture and Right femoral neck impacted fracture Plan: - right atrial dilation and pulm HTN on Echo. Appreciate cards care - incentive spirometer - WBAT RLE - PT/OT - DVT ppx - Keep dressings clean and intact - RUE in sling for comfort. Out of sling 3x/day for elbow ROM - NWB RUE - Followup with Dr. Cruz in 14-21 days after surgery for wound check and shoulder check. Subjective: doing better with mobilization. pain controlled Objective: Vital Signs Temp Pulse Resp BP Pulse Ox 36.7 C 64 14 109/87 H 92 01/29/19 07:39 01/29/19 07:39 01/29/19 07:39 01/29/19 08:31 01/29/19 07:39 Laboratory Results 01/27/19 04:55 01/29/19 04:26 01/28/19 01/29/19 01/30/19 05:59 05:59 05:59 Intake Total 2600 2300 Output Total 2500 2600 Balance 100 -300 PT 14.9 SEC (12.0-15.0) 01/26/19 13:46 INR 1.22 (0.83-1.16) H 01/26/19 13:46 AxOx3 CDI dressing. moving Right foot well and leg better. ICD10 Worksheet Patient Problems: Problems Problem Status Onset Closed right hip fracture Acute Fracture of proximal end of right humerus Acute Balance disorder Acute Incontinence of bowel Acute Lacunar stroke Acute Paresthesia Acute Status migrainosus Acute
[2019-01-29] MEDS: SENNOSIDES/DOCUSATE SODIUM TAB PO SCH ×2 (09:13→20:19)
--- NOTE | 2019-01-29 09:36 | PDCARPN ---
Cardiology Progress Note Chief Complaint: mod-severe MR, severe PHTN Assessment/Plan: Assessment: 73F PMH hlp, dyslipidemia, MANN in , thyroid CA, RA, here after mechanical fall. S/p R prox humeral fx and R femoral neck fx with pinning POD #3. Noted to be hypoxic and echo obtained. Echo shows EF 61, mild-mod TR, est RVSP 71, mod-severe MR, mod LAE, mod-severe NAOMI. Very different in comparison to echo in 2015. CXR shows mild interstitial prominence. NTpBNP 490. Plan: #. hypoxia: related to new VHD versus post-op atel continue PO diuretic and supplemental O2 #. mod-severe MR: likely etiology of worsening pHTN continue diuresis will stop HCTZ that is with her Losartan and continue Losartan alone we discussed repeat echo in 3-4 weeks versus clinical consultation with our CT surgeons #. PHTN: per above/ will defer adding CCB #. DCHF: mostly euvolemic with low BNP Will follow along. 01/29/19 09:29 Reviewed/Discussed With: hospitalist Time Spent with Patient: greater than 25 minutes Time Spent with Patient: Greater than 25 minutes spent on this patients care, greater than 50% of time spent counseling, educating, and coordinating care regarding the above mentioned plan. Objective: Vital Signs (8 Hrs) Temp Pulse Resp BP Pulse Ox 01/29/19 08:31 109/87 H 01/29/19 07:39 98.1 F 64 14 109/83 H 92 01/29/19 04:00 97.8 F 77 17 138/80 H 95 Intake/Output (24 Hrs) 01/28/19 01/29/19 01/30/19 05:59 05:59 05:59 Intake Total 2600 2300 1100 Output Total 2500 2600 850 Balance 100 -300 250 Intake: Oral (ml) 2300 2300 1100 IV Infused (ml) 300 Ns 1,000 ml @ 100 mls/hr 200 IV CONT SOFI Rx#: [id number] ceFAZolin 2 GM/DEXTROSE 100 100 ml @ 200 mls/hr IV Q8H SOFI Rx#:[id number] Output: Urine (ml) 2500 2600 400 Bedside Commode 2500 2600 400 Liquid Stool (ml) 450 Bedside Commode 450 Other: Weight 66.9 kg 66.78 kg Intake Quantity Yes Yes Yes Sufficient Number of Voids Bedside Commode 1 1 1 Number of Stools Bedside Commode 1 1 Result Diagrams: 01/27/19 04:55 01/29/19 04:26 EKG: SR, MARIELY, diffuse ST-T w abn - Physical Exam Constitutional: no apparent distress Eyes: PERRL, anicteric sclera Ears, Nose, Mouth, Throat: moist mucous membranes Cardiovascular: regular rate and rhythm, No systolic murmur Respiratory: clear to auscultate bilat, no crackles Gastrointestinal: normoactive bowel sounds, no tenderness Skin: warm, no edema Neurologic: AAOx3 Psychiatric: cooperative, interactive ICD10 Worksheet Patient Problems: Problems Problem Status Onset Closed right hip fracture Acute Fracture of proximal end of right humerus Acute Balance disorder Acute Incontinence of bowel Acute Lacunar stroke Acute Paresthesia Acute Status migrainosus Acute
[2019-01-29] MEDS: oxyCODONE IR 5 MG TAB PO PRN ×3 (10:32→20:18)
--- NOTE | 2019-01-29 13:52 | HOSPPROG ---
Hospitalist Progress Note Assessment/Plan: 73 yo F with PMH of RA on chronic steroids/chronic immune suppression, HTN, HLD and several months of wheezing and MCKEON presenting s/p mechanical fall with femoral neck and humeral fractures # right femoral neck fx: POD #3 #Pain DC [place] cont oxy #SOB presenting with oxygen of 90% on RA requiring 3L to maintain o2 in the low to mid 90s CXR and physical exam stable ECHO Echo shows EF 61, mild-mod TR, est RVSP 71, mod-severe MR, mod LAE, mod- severe NAOMI. Very different in comparison to echo in 2015. #Hypoxia: patient notes she has had several months of SOB as above currently on 3L of oxygen, -had echo in 2015 with mild diastolic dysfunction but preserved EF and no sig valvular issues related to new VHD versus post-op atel continue PO diuretic and supplemental O2 #Mod-severe MR: likely etiology of worsening pHTN continue diuresis will stop HCTZ that is with her Losartan and continue Losartan alone repeat echo in 3-4 weeks versus clinical consultation with our CT surgeons #PHTN: per above/ will defer adding CCB #DCHF: mostly euvolemic with low BNP # right proximal humerus fracture: currently in a sling, appreciate ortho # RA: with chronic cortef and plaquenil use which will be continued as well as lyrica , will hold celebrex for now # HTN: med changes per cards # s/p thyroidectomy: continue levothyroxine # GERD: continue PPI # IP status, will require > 48 hours care for eval/mgmt of above, may require SNF given upper and lower extremity injuries D/W CM. Rec inpt rehab vs SNF Await inpt rehab eval Subjective: Feeling tired. Having some pain. Objective: Vital Signs Temp Pulse Resp BP Pulse Ox 36.6 C 58 L 13 149/81 H 92 01/29/19 12:00 01/29/19 12:00 01/29/19 12:00 01/29/19 12:00 01/29/19 12:00 Microbiology 01/27/19 14:15 Urine Culture - Final Urine,Clean Catch Laboratory Results 01/27/19 04:55 01/29/19 04:26 01/28/19 01/29/19 01/30/19 05:59 05:59 05:59 Intake Total 2600 2300 1100 Output Total 2500 2600 1750 Balance 100 -300 -650 PT 14.9 SEC (12.0-15.0) 01/26/19 13:46 INR 1.22 (0.83-1.16) H 01/26/19 13:46 - Physical Exam Constitutional: chronically ill appearing, uncomfortable Eyes: PERRL, anicteric sclera Ears, Nose, Mouth, Throat: hearing normal, ears appear normal Cardiovascular: No JVD, No edema Respiratory: no respiratory distress, reduced air movement Gastrointestinal: No tenderness, No ascites Skin: warm, normal color Musculoskeletal: joint tenderness, pain with ROM, generalized weakness Neurologic: AAOx3 Psychiatric: not anxious, not encephalopathic, poor memory ICD10 Worksheet Patient Problems: Problems Problem Status Onset Balance disorder Acute Paresthesia Acute Incontinence of bowel Acute Status migrainosus Acute Lacunar stroke Acute Fracture of proximal end of right humerus Acute Closed right hip fracture Acute
[2019-01-29] MEDS: ESCITALOPRAM OXALATE 10 MG TAB PO SCH (20:18)
[2019-01-29] MEDS: PREGABALIN 75 MG CAP PO SCH (20:18)
[2019-01-30] MEDS: ACETAMINOPHEN 325 MG TAB PO PRN ×3 (00:11→23:02)
[2019-01-30] MEDS: LEVOTHYROXINE 137 MCG TAB PO SCH (06:04)
[2019-01-30] MEDS: oxyCODONE IR 5 MG TAB PO PRN ×2 (06:04→20:36)
[2019-01-30] MEDS: HYDROCORTISONE 10 MG TAB PO SCH ×2 (08:11→20:36)
[2019-01-30] MEDS: FUROSEMIDE 40 MG TAB PO SCH ×2 (08:11→14:28)
[2019-01-30] MEDS: PANTOPRAZOLE SODIUM 40 MG TAB PO SCH (08:11)
[2019-01-30] MEDS: ENOXAPARIN 40 MG/0.4 ML SYR SC SCH (08:11)
[2019-01-30] MEDS: LOSARTAN POTASSIUM 50 MG TAB PO SCH (08:11)
[2019-01-30] MEDS: SULFAMETHOX/TMP 800/160 MG 1 TAB PO SCH (08:11)
[2019-01-30] MEDS: HYDROXYCHLOROQUINE SULFATE 200 MG TAB PO SCH ×2 (08:11→20:36)
[2019-01-30] MEDS: POTASSIUM CL 10 MEQ TAB PO SCH (08:11)
[2019-01-30] MEDS: SENNOSIDES/DOCUSATE SODIUM TAB PO SCH ×2 (08:12→20:36)
[2019-01-30] MEDS ORDERED: FUROSEMIDE 20 MG/2 ML VIAL IVP ONE (09:20)
[2019-01-30] MEDS ORDERED: IOPAMIDOL (ISOVUE 370) 100 ML BTL IV ONE (10:22)
[2019-01-30] MEDS ORDERED: POTASSIUM CL 10 MEQ TAB PO ONE (10:24)
--- NOTE | 2019-01-30 10:54 | PDCARPN ---
Cardiology Progress Note Chief Complaint: Patient reports continuation of shortness of breath. Assessment/Plan: Assessment: 73-year-old female with past medical history that includes hypertension hyperlipidemia, MANN in 90s, migraine disorder questionable TIAs, thyroid cancer , rheumatoid arthritis. Visiting from [facility], arrival around 01/19. Admitted 01/26/2019 mechanical fall, with fractured right humerus and right femoral neck. Pending of femoral neck on 01/26/2019. Noted on admission to be hypoxic, with significant require oxygen therapy needed to keep SpO2 greater than 90. Patient reporting ongoing SOB for multiple months, stating only able to walk 1-2 blocks in [place], significantly worse with arrival in [place]. Echocardiogram done 01/27/2019 noting LVEF 61% with no wall motion abnormalities , [id number] TR, moderate severe MR, moderate LA enlargement, moderate to severe RA enlargement, RVSP of 71 mm Hg. In comparison to previous echocardiogram on file in 2014, significant change. Chest x-ray on admission showing mild interstitial prominence, BNP 01/29/2019 showing mild elevation at 490. Patient has been started on oral diuretics. Resumed on home blood pressure management of losartan. Hydrochlorothiazide discontinued. 01/30/2019: Patient reports continuation of dyspnea on exertion today, still requiring 3 liters/minute nasal cannula to keep SpO2 greater than 90. O>I but weight has been stable for last 3 days (66.6 kilos). Patient noted with mild JVD of 5 cm above sternal notch, mild rales noted in left lower lobe. BP overnight noting with systolic up to 140 mm Hg, but this morning when up in walking, systolic in the 90s. Denies of any lightheadedness, near-syncope or syncopal events. Continues cardiac monitoring showing sinus rhythm with occasional PVCs, no other malignant arrhythmias or pauses noted. Plan: 1. Hypoxia: Ongoing with continuation of O2 requirements. Echo showing some significant pulmonary artery hypertension, with newly found valvular heart disease. Chest x-ray does suggest some underlying pulmonary disease. BNP mildly elevated, but no significant signs of heart failure on chest x-ray. Not much improvement with diuresis. Would like her to undergo CTA with newly found pulmonary hypertension to evaluate for potential thrombotic /embolic event and underlining lung disease. 2. Moderate to severe MR: Newly discovered in comparison to previous echo in 2014. Patient does not appear significantly fluid overloaded. Continue on oral diuretics Lasix. Potassium at 3.3 today, ordered extra potassium supplement. 3. Pulmonary hypertension: As above, CTA ordered. With lower blood pressures, will hold the starting her on amlodipine. 4. Diastolic congestive heart failure: Mildly elevated BNP, continue diuretic therapy, daily weights, I&Os. My guess patient is almost to euvolemic state. 5. Hypertension: Continue monitoring BP, may need to adjust for his losartan down with the addition of diuretic therapy. 6. humerus and femur fracture: Status post hip pinning, defer to Orthopedics. 01/30/19 10:49 Subjective: Patient reports continuation of shortness of breath, especially with exertion. She reports no chest pain or pressure. Denies of any palpitations. Reports no lightheadedness, near-syncope or syncopal events. Reviewed/Discussed With: hospitalist (Triston Rice NP), other (Dr Cody) Objective: Vital Signs (8 Hrs) Temp Pulse Resp BP Pulse Ox 01/30/19 10:15 91/77 L 01/30/19 08:11 122/66 H 01/30/19 07:53 36.4 C 56 L 16 122/66 H 91 L 01/30/19 07:45 82 L 01/30/19 03:27 36.6 C 63 12 141/71 H 93 Intake/Output (24 Hrs) 01/29/19 01/30/19 01/31/19 05:59 05:59 05:59 Intake Total 2300 3350 Output Total 2600 3550 200 Balance -300 -200 -200 Intake: Oral (ml) 2300 3350 Output: Urine (ml) 2600 3100 200 Bedside Commode 2600 1300 Toilet 1800 200 Liquid Stool (ml) 450 Bedside Commode 450 Other: Weight 66.78 kg 66.6 kg Intake Quantity Yes Yes Sufficient Output Comment Toilet some urine missed hat Number of Voids Bedside Commode 1 1 Toilet 1 Number of Stools Bedside Commode 1 1 Result Diagrams: 01/27/19 04:55 01/31/19 04:26 - Physical Exam Constitutional: no apparent distress Ears, Nose, Mouth, Throat: moist mucous membranes Cardiovascular: regular rate and rhythm, no rubs, no gallops, systolic murmur (3 /6 left sternal border), jugular vein distention (5 cm above sternal notch at a 45 degree angle), pulses symmetric bilat, No carotid bruit Peripheral Pulses: 1+: dorsalis-pedis (R), dorsalis-pedis (L), 2+: carotid (R), carotid (L) Respiratory: other (Mild rales noted left lower lobe, no rhonchi, or wheezing noted. No accessary muscle use. No intercostal muscle retraction.) Gastrointestinal: no masses Skin: warm, other (Right hip dressing clean dry and intact with no redness, swelling, or drainage.), No no edema (Trace pedal edema) Neurologic: AAOx3 Psychiatric: cooperative, interactive, following commands ICD10 Worksheet Patient Problems: Problems Problem Status Onset Closed right hip fracture Acute Fracture of proximal end of right humerus Acute Balance disorder Acute Incontinence of bowel Acute Lacunar stroke Acute Paresthesia Acute Status migrainosus Acute
--- NOTE | 2019-01-30 13:21 | HOSPPROG ---
Hospitalist Progress Note Assessment/Plan: 73 yo F with PMH of RA on chronic steroids/chronic immune suppression, HTN, HLD and several months of wheezing and MCKEON presenting s/p mechanical fall with femoral neck and humeral fractures. Reviewed her care w Chauncey Burleson. First encounter, chart reviewed. # right femoral neck fx POD #3 # right proximal humerus fracture currently in a sling #Pain -on oxy #SOB -multifactorial - due to her Moderate-Severe MR & bronchiectasis - Echo shows EF 61, mild-mod TR, est RVSP 71, mod-severe MR, mod LAE, mod- severe NAOMI. Very different in comparison to echo in 2015. -she has bronchiectasis noted on CT scan-has had ongoing dyspnea for a period of time #Hypoxia -echo notes valvular disease and pulmonary artery htn -on 3 liters of oxygen -CTA shows no PE, bronchiectasis -pulmonary artery htn noted on echo #Mod-severe MR: -ikely etiology of worsening pHTN -continue diuresis -stop HCTZ that is with her Losartan and continue Losartan alone -repeat echo in 3-4 weeks versus clinical consultation with our CT surgeons #Bronchiectasis -will need close f/u w a Neuropsychiatrist -will order bronchodilators to help -has a hx of AVM #6 mm right upper lobe nodule -likely pleural/ parenchymal scarring -she has a hx of smoking approximately a pack day x 15 years -needs continued monitoring in OP setting #PHTN per above/ will defer adding CCB #DCHF: -mildly elevated BNP -almost euvolemic #hypokalemia -given coverage # RA: Cortef, Plaquenil, Lyrica, will hold celebrex for now # HTN med changes per cards # s/p thyroidectomy -continue levothyroxine -TSH is low at 0.395 (may need Synthroid dose reduced) -should get TSH recheck in 6 weeks # GERD: continue PPI #DVT prophylaxis: LMWH #plan:is from [place] and is planning on returning there, will need a repeat echo, TSH. Explained to Angelica and her the importance of her getting close f/u with a care program director and rotary planer set up operator. She may need her mitral valve repaired, replaced or treated medically. Will need f/u imaging of her lungs in addition. Poss dc to IP rehab tomorrow Subjective: Angelica is feeling better today, still short of breath Objective: Vital Signs Temp Pulse Resp BP Pulse Ox 36.4 C 54 L 17 111/61 92 01/30/19 11:18 01/30/19 11:18 01/30/19 11:18 01/30/19 11:18 01/30/19 11:18 Microbiology 01/27/19 14:15 Urine Culture - Final Urine,Clean Catch Laboratory Results 01/27/19 04:55 01/30/19 09:45 01/29/19 01/30/19 01/31/19 05:59 05:59 05:59 Intake Total 2300 3350 Output Total 2600 3550 200 Balance -300 -200 -200 PT 14.9 SEC (12.0-15.0) 01/26/19 13:46 INR 1.22 (0.83-1.16) H 01/26/19 13:46 - Physical Exam Constitutional: no apparent distress, appears nourished Eyes: PERRL Ears, Nose, Mouth, Throat: hearing normal Cardiovascular: regular rate and rhythym, systolic murmur Respiratory: no respiratory distress, other (crackles bibasilar) Skin: warm, other (good cms on right hand) Musculoskeletal: generalized weakness Neurologic: AAOx3 Psychiatric: interacting appropriately ICD10 Worksheet Patient Problems: Problems Problem Status Onset Closed right hip fracture Acute Fracture of proximal end of right humerus Acute Balance disorder Acute Incontinence of bowel Acute Lacunar stroke Acute Paresthesia Acute Status migrainosus Acute
--- NOTE | 2019-01-30 16:02 | ASMTCMCOM ---
CM Note CM Note Notes: CM spoke with hospitalist and pt. Pt has been accepted by [facility] Ipt Rehab but is not medically stable to discharge today and may need 1-2 more days inpatient. Ipt Rehab bed may not be available after tomorrow. Pt does not wish to pursue Ipt Rehab outside of [facility] and is agreeable to going to [facility] if Ipt Rehab is not available. [facility] has accepted. CM to follow. D/C Plan: [facility] I[facility] Date Signed: 01/30/2019 04:01 PM Electronically Signed By:Jaqueline Garrison. TINA
[2019-01-30] MEDS: IPRATROPIUM/ALBUTEROL 3 ML DEYVIAL IH SCH ×2 (17:14→21:29)
[2019-01-30] MEDS: PREGABALIN 75 MG CAP PO SCH (20:35)
[2019-01-30] MEDS: ESCITALOPRAM OXALATE 10 MG TAB PO SCH (20:36)
[2019-01-31] MEDS: IPRATROPIUM/ALBUTEROL 3 ML DEYVIAL IH SCH ×3 (05:18→12:14)
[2019-01-31] MEDS: LEVOTHYROXINE 137 MCG TAB PO SCH (05:40)
[2019-01-31] MEDS: ACETAMINOPHEN 325 MG TAB PO PRN (07:55)
[2019-01-31] MEDS: HYDROXYCHLOROQUINE SULFATE 200 MG TAB PO SCH (07:58)
[2019-01-31] MEDS: LOSARTAN POTASSIUM 50 MG TAB PO SCH (07:59)
[2019-01-31] MEDS: POTASSIUM CL 10 MEQ TAB PO SCH (07:59)
[2019-01-31] MEDS: PANTOPRAZOLE SODIUM 40 MG TAB PO SCH (07:59)
[2019-01-31] MEDS: HYDROCORTISONE 10 MG TAB PO SCH (07:59)
[2019-01-31] MEDS: FUROSEMIDE 40 MG TAB PO SCH (07:59)
[2019-01-31] MEDS: ENOXAPARIN 40 MG/0.4 ML SYR SC SCH (08:00)
[2019-01-31] MEDS: SENNOSIDES/DOCUSATE SODIUM TAB PO SCH (08:05)
--- NOTE | 2019-01-31 09:49 | HOSPPROG ---
Hospitalist Progress Note Assessment/Plan: 73 yo F with PMH of RA on chronic steroids/chronic immune suppression, HTN, HLD and several months of wheezing and MCKEON presenting s/p mechanical fall with femoral neck and humeral fractures. # right femoral neck fx POD #4 # right proximal humerus fracture currently in a sling #Pain -on oxy #SOB -multifactorial - due to her Moderate-Severe MR & bronchiectasis - Echo shows EF 61, mild-mod TR, est RVSP 71, mod-severe MR, mod LAE, mod- severe NAOMI. Very different in comparison to echo in 2015. -she has bronchiectasis noted on CT scan-has had ongoing dyspnea for a period of time #Hypoxia -echo notes valvular disease and pulmonary artery htn -on 3 liters of oxygen -CTA shows no PE, bronchiectasis -pulmonary artery htn noted on echo #Mod-severe MR: -ikely etiology of worsening pHTN -continue diuresis -stop HCTZ that is with her Losartan and continue Losartan alone -repeat echo in 3-4 weeks versus clinical consultation with our CT surgeons #Bronchiectasis -will need close f/u w a Dishroom Attendant -will order bronchodilators to help -has a hx of AVM #6 mm right upper lobe nodule -likely pleural/ parenchymal scarring -she has a hx of smoking approximately a pack day x 15 years -needs continued monitoring in OP setting #PHTN per above/ will defer adding CCB #DCHF: -mildly elevated BNP -almost euvolemic #hypokalemia -given coverage # RA: Cortef, Plaquenil, Lyrica, will hold celebrex for now # HTN med changes per cards # s/p thyroidectomy -continue levothyroxine -TSH is low at 0.395 (may need Synthroid dose reduced) -should get TSH recheck in 6 weeks # GERD: continue PPI #DVT prophylaxis: LMWH #plan: dc to IP rehab, spoke with her PCP Dr Quan Miller ([phone]) and updated him on the f/u care she will need. Reviewed her care w Chauncey Burleson , and he will see her in a week, will cont Lasix bid for now Subjective: Angelica is feeling fine, no complaints. Objective: Vital Signs Temp Pulse Resp BP Pulse Ox 36.5 C 66 21 H 135/72 H 95 01/31/19 07:42 01/31/19 07:42 01/31/19 07:42 01/31/19 07:59 01/31/19 07:42 Laboratory Results 01/27/19 04:55 01/31/19 04:26 01/30/19 01/31/19 02/01/19 05:59 05:59 05:59 Intake Total 3350 2550 Output Total 3550 1800 Balance -200 750 PT 14.9 SEC (12.0-15.0) 01/26/19 13:46 INR 1.22 (0.83-1.16) H 01/26/19 13:46 - Physical Exam Constitutional: no apparent distress, appears nourished, not in pain Eyes: PERRL Ears, Nose, Mouth, Throat: hearing normal Cardiovascular: regular rate and rhythym, other (has an S3) Respiratory: no respiratory distress, other (few crackles bibasilar) Gastrointestinal: normoactive bowel sounds Skin: warm Musculoskeletal: generalized weakness Neurologic: AAOx3 Psychiatric: interacting appropriately ICD10 Worksheet Patient Problems: Problems Problem Status Onset Closed right hip fracture Acute Fracture of proximal end of right humerus Acute Balance disorder Acute Incontinence of bowel Acute Lacunar stroke Acute Paresthesia Acute Status migrainosus Acute
--- NOTE | 2019-01-31 10:58 | PDIAF ---
- Diagnosis Diagnosis: r femur neck fx, r humerus fx, bronchiectasis, mod to severe MR Code Status: Full Code - Medication Management Discharge Medications: electronically signed and located in the Home Medication List. PICC Care - Routine: N/A - Orders Services needed: Physical Therapy, Occupational Therapy Isolation Type: None Oxygen: 3 liters Diet Recommendation: no restrictions on diet Diet Texture: Regular Texture Diet Weigh Patient: daily Additional Instructions: Ortho Plan - WBAT RLE - Keep dressings clean and intact - RUE in sling for comfort. Out of sling 3x/day for elbow ROM - NWB RUE - Followup with Dr. Cruz in 14-21 days after surgery for wound check and shoulder check. Call [phone] to get [place] appointment setup - ideal date 02/13/2019 you need a repeat echo in 3-4 weeks you need a repeat TSH in 6 weeks I spoke with your doctor in [place]; he is aware of the plan You need close f/u with cardiology and pulmonology you need surveillance of pulmonary nodule follow up with cardiology here prior to going back to [place]-you have an appt w Dr Bhumi Epperson stay on the Lasix for now take only losartan, stop the HCTZ - Labs/Radiology BMP Date: 02/07/19 (weekly) - Follow Up Care Current Providers and Referrals: Jordan Cruz MD [Medical Doctor] - Patient,NotPresent [Unknown] - As per Instructions Bhumi Epperson MD [Medical Doctor] - (Follow up with Chauncey Burleson NP at [facility] at [address] [place] [address]. February 08, 2019 at 1:00 pm)
--- NOTE | 2019-01-31 11:00 | ASMTDCNOTE ---
Case Management Discharge Discharge Order Complete? Answers: Yes Patient to Obtain Answers: Other Notes: Ip Rehab Medications Transportation Arranged Answers: Other Notes: wheelchair to [facility] will Pick (Date 01/31/2019 12:00 AM & Time) Faxed Final Orders Answers: Yes Agency/Facility Transfer Answers: Yes Report Printed & Faxed to Receiving Agency Family Notified Answers: Yes Notes: family in the room Discharge Comments Notes: Pt to discharge today to inpatient rehab here at [facility]. RN given number for RN report. No further CM needs noted at this time. Date Signed: 01/31/2019 10:59 AM Electronically Signed By:Jaqueline Garrison. TINA
--- NOTE | 2019-01-31 11:01 | ASMTLACE ---
LACE Length of stay for Answers: 4-6 days current admission Acuity / Level of Answers: Yes Care: Did the patient have an inpatient admission? Comorbidities - select Answers: Any tumor (including all that apply lymphoma or leukemia) Other Notes: hypertension, hyperlipi dem ia, migraines # of Emergency department Answers: 1-2 visits in the last 6 months Score: 11 Date Signed: 01/31/2019 11:01 AM Electronically Signed By:Jaqueline Wayne RN
--- NOTE | 2019-01-31 11:30 | PDCARPN ---
Cardiology Progress Note Chief Complaint: Patient reports shortness of breath has improved mildly. Assessment/Plan: Assessment: 73-year-old female with past medical history that includes hypertension hyperlipidemia, MANN in 90s, migraine disorder questionable TIAs, thyroid cancer , rheumatoid arthritis. Visiting from [facility], arrival around 01/19. Admitted 01/26/2019 mechanical fall, with fractured right humerus and right femoral neck. Pending of femoral neck on 01/26/2019. Noted on admission to be hypoxic, with significant require oxygen therapy needed to keep SpO2 greater than 90. Patient reporting ongoing SOB for multiple months, stating only able to walk 1-2 blocks in [place], significantly worse with arrival in [place]. Echocardiogram done 01/27/2019 noting LVEF 61% with no wall motion abnormalities , [id number] TR, moderate severe MR, moderate LA enlargement, moderate to severe RA enlargement, RVSP of 71 mm Hg. In comparison to previous echocardiogram on file in 2014, significant change. Chest x-ray on admission showing mild interstitial prominence, BNP 01/29/2019 showing mild elevation at 490. Patient has been started on oral diuretics. Resumed on home blood pressure management of losartan. Hydrochlorothiazide discontinued. 01/31/2019: 01/31/2019: She reports mild improvement in shortness of breath. She reports no chest pain or pressure. Continuous cardiac monitoring showing sinus rhythm with occasional PVC, no other malignant arrhythmias or pauses noted. Patient's weight is down 1 kilos from yesterday. O>I. Laboratory studies today noting potassium at 4.0, BUN 17, creatinine 0.9. CTA of chest done on 01/30/2019 noting no pulmonary embolism. Was noted bronchiectasis. Patient potentially being discharged to rehab today. Patient JVD 4-5 cm above sternal notch. Mild rales noted in left lower lobe. Plan: 1. Hypoxia: Ongoing with continuation of O2 requirements. Bronchiectasis noted on CTA. No PE. Inhalers ordered by hospitalist. Continue oxygen therapy. 2. Moderate to severe MR: Newly discovered in comparison to previous echo in 2014. Patient does not appear significantly fluid overloaded. Continue on oral diuretics Lasix. Consider re-evaluation of MR by echo in a month, after being medication therapy. 3. Pulmonary hypertension: Defer and amlodipine at this time. CTA negative for PE. Patient will need be evaluated also by pulmonology, can be done in outpatient setting, when she has returned back home to [place]. 4. Diastolic congestive heart failure: Mildly elevated BNP, continue diuretic therapy, daily weights, I&Os. She appears almost to be yearly state. 5. Hypertension: BP stable, no changes to current medication regime at this time. 6. humerus and femur fracture: Status post hip pinning, defer to Orthopedics. Patient planning to be discharged to rehab today. Will continue on current Lasix dosage. Have asked that a basic metabolic panel be drawn next Tuesday. Continue daily weights. Have scheduled for a followup appointment with us this next . 01/31/19 11:29 Subjective: Patient denies of any chest pain or pressure. Denies of any palpitations. Reports no lightheadedness. Denies of any near-syncope or syncopal events. Reports continuation of shortness of breath, this has improved from yesterday. Reviewed/Discussed With: hospitalist (Triston Rice NP), other (Dr Cody) Objective: Vital Signs (8 Hrs) Temp Pulse Resp BP Pulse Ox 01/31/19 07:59 135/72 H 01/31/19 07:42 36.5 C 66 21 H 135/72 H 95 01/31/19 05:18 57 L 16 93 01/31/19 04:00 36.8 C 65 12 138/71 H 93 Intake/Output (24 Hrs) 01/30/19 01/31/19 02/01/19 05:59 05:59 05:59 Intake Total 3350 2550 Output Total 3550 1800 200 Balance -200 750 -200 Intake: Oral (ml) 3350 2550 Output: Urine (ml) 3100 1800 200 Bedside Commode 1300 Toilet 1800 1800 200 Liquid Stool (ml) 450 Bedside Commode 450 Other: Weight 66.6 kg 65.8 kg Intake Quantity Yes Yes Sufficient Output Comment Toilet some urine missed hat Number of Voids Bedside Commode 1 Toilet 1 2 Number of Stools Bedside Commode 1 Result Diagrams: 01/27/19 04:55 01/31/19 04:26 - Physical Exam Constitutional: WDWN, no apparent distress Cardiovascular: regular rate and rhythm, systolic murmur (2/6 left sternal border), jugular vein distention (4-5 cm above sternal notch), pulses symmetric bilat, No carotid bruit Peripheral Pulses: 1+: dorsalis-pedis (R), dorsalis-pedis (L), 2+: carotid (R), carotid (L) Respiratory: other (mild rales noted in left bases. No rhonchi or wheezing. No accessary muscle use, no intercostal muscle retraction noted.) Gastrointestinal: normoactive bowel sounds Skin: no rashes, warm, other (Right hip dressing clean dry and intact.), No no edema (Trace to +1 peripheral edema bilateral lower extremity to thigh.) Neurologic: AAOx3 Psychiatric: cooperative, interactive, following commands ICD10 Worksheet Patient Problems: Problems Problem Status Onset Closed right hip fracture Acute Fracture of proximal end of right humerus Acute Balance disorder Acute Incontinence of bowel Acute Lacunar stroke Acute Paresthesia Acute Status migrainosus Acute
[2019-01-31 12:04] VITALS: BP 113/63
--- NOTE | 2019-01-31 12:09 | GDS ---
[f rep st] DISCHARGE SUMMARY DISCHARGE DIAGNOSES: 1. Right femoral neck fracture, status post repair. 2. Right proximal humerus fracture. 3. Pain due to this. 4. Shortness of breath with ongoing hypoxia. 5. Moderate to moderate to severe mitral regurgitation. 6. Bronchiectasis. 7. 6 mm right upper lobe nodule. 8. Pulmonary hypertension. 9. Diastolic congestive heart failure. 10. Hypokalemia. 11. Rheumatoid arthritis. 12. Hypertension. 13. Status post thyroidectomy. 14. Gastroesophageal reflux disease. CONSULTATIONS: 1. Dr. Jordan Cruz. 2. DARIN Ewing, RN with cardiology. HISTORY OF PRESENT ILLNESS: Briefly, the patient is a 73-year-old female who presented after a trip and fall with resultant right arm and leg pain and she was found to have acute fractures of the right femoral neck and right proximal humerus area. On admission, was noting that she was requiring significant oxygen up to 5 L. She initially underwent surgery on 01/[address] Cruz and has done quite well with recovering. Of concern, she was requiring significant amounts of oxygen. She was evaluated by Cardiology and it was noted that she had grade 2 diastolic dysfunction with severe pulmonary hypertension with an estimated RVSP of 74 mmHg. She denies any history of sleep apnea. Also of note , she was noted to have moderate to severe mitral regurgitation. She was diuresed with IV Lasix. She will be on oral Lasix. The plan is for her to get a repeat echo in 3-4 weeks. In addition, she will need close surveillance and care by Pulmonology. I have spoken with her primary care physician in the [place] area, who will follow up with her. HOSPITAL COURSE: 1. Right femoral neck fracture status post repair, doing quite well. 2. Right proximal humerus fracture. She is in a sling. 3. Shortness of breath with ongoing hypoxia. This is multifactorial. This is due to her moderate to severe MR, as well as bronchiectasis. She also has severe pulmonary hypertension. She will follow up with Cardiology prior to leaving [place] and follow up with her primary care doctor. 4. Moderate to severe MR. This is likely the etiology of her worsening pulmonary hypertension. Her hydrochlorothiazide was discontinued. She can continue her losartan alone. Will continue Lasix twice daily. 5. Bronchiectasis. She has been placed on bronchodilators to help with this. In addition, she has a history of AVM. Further follow up with her PCP. 6. 6 mm right upper lobe nodule. This is likely pleural parenchymal scarring, but she does have a history of smoking a pack for 15 years. Again, further follow up with her PCP. This needs monitoring. 7. Pulmonary hypertension. At this time, Cardiology has not added a calcium channel shon. Further evaluation by Cardiology. 8. Diastolic congestive heart failure. She is almost euvolemic at this point. Will continue daily weights. She will follow up with the director workforce management here in [place] prior to returning to [place]. 9. Hypokalemia, covered. 10. Rheumatoid arthritis. Continue her Cortef, Plaquenil, and Lyrica. 11. Hypertension, stable. 12. Status post thyroidectomy. Her TSH is low at 0.395. She may need a lower dose of Synthroid. Get her TSH rechecked in 6 weeks. 13. GERD, on PPI. DISCHARGE CONDITION: Stable. Blood pressure is 135/72, heart rate is 66, respiratory rate of 21, O2 saturation on 3 L are 95%, temperature is 36.5 Celsius. MEDICATIONS AT DISCHARGE: Please see the EMR. DISCHARGE INSTRUCTIONS: 1. She is to follow up with Orthopedics around February 13. 2. Weightbearing as tolerated to right lower extremity. 3. Nonweightbearing to her right upper extremity. 4. Echo in 3 to 4 weeks. 5. TSH in 6 weeks. 6. Follow up with Cardiology and Pulmonology. 7. Surveillance of pulmonary nodule. 8. Multiple changes have been done to her medications. Recommendation is for her to stick with blood pressure medications recommended by Cardiology prior to her return to [place]. Copy requested to: Quan Miller MD [facility] [address] [id number] /[id number]/MODL MTDD
--- NOTE | 2019-01-31 14:50 | ASDISCHSUM ---
Discharge Information Plan Status:Inpatient Rehab Medically Cleared to Leave:01/31/2019 Discharge Date:01/31/2019 01:08 PM D/C Disposition:[facility] IP ADT D/C Disposition:[facility] IP Projected Discharge Date:01/29/2019 11:00 AM Transportation at D/C:None or Unknown Discharge Delay Reason: Follow-Up Date:01/29/2019 11:00 AM Discharge Slot: Final Diagnosis:Humerus fracture and hip fracture Placement Information Referral Type:*Assisted/SNF Referral ID:[id number] Provider Name: Address 1: Phone Number: Address 2: Fax Number: City: Selection Factors: State: Referral Type:[facility] Referral ID:[id number] Provider Name:[facility] Address 1:[address] Phone Number: Address 2: Fax Number: [facility]:[place] Selection Factors: State:[place] Patient Contact Information Contact Name:RICK Relationship: Address:[address] City:[facility] Phone: State/Zip Code:[place] [address] Email: Financial Information Financial Class:Medicare Primary Plan Desc:MEDICARE INPATIENT Primary Plan Number:[id number] Secondary Plan Desc:[employer] Secondary Plan Number:[id number] Assessment Information [facility] CM Progress Note CM Note CM Note Notes: CM met with pt, and daughter. Pt is a 73- year old who came in because she fell. Pt has an acute fractures of right femoral neck and right proximal humerus. Pt lives in [place] but was visiting her family in [place]. Therapy and doc recommend inpatient. CM left message for [facility] Inpatient Rehab and sent a referral through [facility]. If she is not accepted then CM put in a referral to [facility]. Pasrr was completed. CM to follow. Plan:[facility] Inpatient or [facility] Date Signed: 01/27/2019 02:50 PM Electronically Signed By:Mara Glez LACE LACE Length of stay for Answers: 4-6 days current admission Acuity / Level of Answers: Yes Care: Did the patient have an inpatient admission? Comorbidities - select Answers: Any tumor (including all that apply lymphoma or leukemia) Other Notes: hypertension, hyperlipi dem ia, migraines # of Emergency department Answers: 1-2 visits in the last 6 months Score: 11 Date Signed: 01/31/2019 11:01 AM Electronically Signed By:Jaqueline Garrison. TINA [facility] CM Progress Note CM Note CM Note Notes: CM spoke with hospitalist and pt. Pt has been accepted by [facility] but is not medically stable to discharge today and may need 1-2 more days inpatient. [facility]hab bed may not be available after tomorrow. Pt does not wish to pursue [facility] outside of [place] and is agreeable to going to [facility] if [facility] is not available. [facility] has accepted. CM to follow. D/C Plan: [facility] Date Signed: 01/30/2019 04:01 PM Electronically Signed By:Jaqueline Garrison. TINA Case Management Discharge Plan Note Case Management Discharge Discharge Order Complete? Answers: Yes Patient to Obtain Answers: Other Notes: [facility] Medications Transportation Arranged Answers: Other Notes: wheelchair to [facility] will Pick (Date 01/31/2019 12:00 AM & Time) Faxed Final Orders Answers: Yes Agency/Facility Transfer Answers: Yes Report Printed & Faxed to Receiving Agency Family Notified Answers: Yes Notes: family in the room Discharge Comments Notes: Pt to discharge today to inpatient rehab here at [facility]. RN given number for RN report. No further CM needs noted at this time. Date Signed: 01/31/2019 10:59 AM Electronically Signed By:Jaqueline Wayne RN Intervention Information Intervention Type:*Incorrect Registration Date of Service:01/26/2019 04:54 PM Patient Type:Inpatient Staff Member:TINA Cote Courtney Hours: Discipline: Severity: Comment: Intervention Type:*IM-Signed Date of Service:01/31/2019 02:49 PM Patient Type:Inpatient Staff Member:Jaqueline Wayne RN Hours: Discipline:Nitrating Acid Mixer Severity: Comment:
--- NOTE | 2019-02-02 11:01 | CPEKG ---
Test Reason : OPEN Blood Pressure : / mmHG Vent. Rate : 059 BPM Atrial Rate : 059 BPM P-R Int : 174 ms QRS Dur : 093 ms QT Int : 463 ms P-R-T Axes : 076 072 105 degrees QTc Int : 459 ms Sinus rhythm Left atrial enlargement Nonspecific T abnrm, anterolateral leads Confirmed by Jorge Ashraf ([id number]) on 02/02/2019 11:00:52 AM Referred By: Kaiser Bonilla Confirmed By:Jorge Ashraf
== END 2019-01-31 13:08 | DRG 481 ==
LOC: EDUNIT# → OBSVTOIN 15:07 → F3N 15:35
PROVIDERS: ADMIT Internal Medicine; ATTEND Internal Medicine
PROC: 0QH604Z Insertion of Internal Fixation Device into Right Upper Femur, Open Approach (ICD-10-PCS; principal; 2019-01-26 18:30)
DX: S72.001A Fracture of unspecified part of neck of right femur, initial encounter for closed fracture (principal); S42.251A Displaced fracture of greater tuberosity of right humerus, initial encounter for closed fracture; I11.0 Hypertensive heart disease with heart failure; I50.30 Unspecified diastolic (congestive) heart failure; E87.6 Hypokalemia; M34.1 CR(E)ST syndrome; M79.7 Fibromyalgia; E78.5 Hyperlipidemia, unspecified; M06.9 Rheumatoid arthritis, unspecified; K21.9 Gastro-esophageal reflux disease without esophagitis; E89.0 Postprocedural hypothyroidism; Z85.850 Personal history of malignant neoplasm of thyroid; I27.20 Pulmonary hypertension, unspecified; I34.0 Nonrheumatic mitral (valve) insufficiency; J47.9 Bronchiectasis, uncomplicated; R91.8 Other nonspecific abnormal finding of lung field; G43.909 Migraine, unspecified, not intractable, without status migrainosus; Z87.891 Personal history of nicotine dependence
CPT/HCPCS: 96374; 97110-GP; 97116-GP; 97162-GP; 97165-GO; 97530-GP; 97535-GO; A4565; C1713; C1769; J0690; J1170; J1650; J1940; J2704; J3010; J7613; Q9967

== ENCOUNTER 2019-01-31 12:09 | Inpatient (IN) | payer OTHER ==
[2019-01-31] MEDS ORDERED: ACETAMINOPHEN 500 MG TAB PO ONE (14:32)
[2019-01-31] MEDS ORDERED: POLYETHYLENE GLYCOL 3350 17 GM PKT PO PRN (14:41)
--- NOTE | 2019-01-31 14:59 | GHP ---
[f rep st] HISTORY AND PHYSICAL POST ADMISSION PHYSICIAN EVALUATION AND REHABILITATION TREATMENT PLAN DATE OF ADMISSION: 01/31/2019 DATE OF EVALUATION: 01/31/2019 TIME OF EVALUATION: 1340. REFERRING FACILITY: [facility]. REFERRING PHYSICIAN: Mackenzie Dowling NP CONSULTING PHYSICIANS: She was seen in consultation by orthopedic surgery, Dr. Cruz, and cardiology, Dr. Matthews. REHABILITATION DIAGNOSIS: Debility status post fall with right femur and right humerus fracture. ETIOLOGIC DIAGNOSIS: Major multiple fractures. IMPAIRMENT GROUP: 8.4. DATE OF ONSET: 01/26/2019. DATE OF SURGERY: 01/26/2019. HISTORY OF PRESENT ILLNESS: This is a 73-year-old woman who was visiting her daughter from [place]. She suffered a mechanical fall and a right femoral fracture and right proximal humerus fracture. She had ORIF and pinning of the femur, and she is allowed full weightbearing. The right humerus fracture is being treated conservatively with a sling and nonweightbearing status. She had shortness of breath and hypoxia in the hospital. Evaluation included an echocardiogram which showed severe pulmonary hypertension with a right ventricular systolic pressure of 74 mmHg and severe mitral regurgitation, grade 2 diastolic dysfunction, moderate left atrial enlargement, [id number] right atrial enlargement, and [id number] tricuspid regurgitation. There was a CT angiogram done which ruled out pulmonary embolus but showed mild bronchiectasis and reticulonodular opacity suggesting of bilateral multifocal bronchiolitis and a 6 mm right upper lobe nodule. She was treated with albuterol nebulizers, and her reports that she had improvement in oxygenation with this treatment, but she is not aware of relief of dyspnea. She was seen by Cardiology and treated with furosemide in the hopes of reducing preload and improving mitral valve function. Ultimately, she was stable on oxygen at 3 L. She was otherwise medically stable and appropriate for inpatient rehabilitation OTHER STUDIES AND LABS: Blood counts remained stable with no anemia. On 2018, she developed a slight elevation in her white blood cells at 9.81. There was no left shift. They were predominantly neutrophils. Coagulation studies revealed a slightly elevated INR at 1.22, but otherwise were normal. Serum chemistry was normal but for a low carbon dioxide at 21 on the day of admission. On 01/31/2019, the day of hospital discharge, renal function and electrolytes were normal. Beta natriuretic peptide was elevated at 490. TSH was slightly suppressed at 0.395. Urinalysis was completely negative. PRECAUTIONS: She is a fall risk. She has nonweightbearing status on the right upper extremity. ACTIVE COMORBIDITIES: She has no active tier 1, tier 2, or tier 3 comorbidities. PAST MEDICAL HISTORY: 1. Rheumatoid arthritis with CREST syndrome variant. 2. 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 3. History of atrial fibrillation. 4. Thyroid cancer. 5. Melanoma. 6. Fibromyalgia. 7. Prior falls. 8. Hypertension. 9. Depression. 10. Dyslipidemia. 11. Migraine headaches. PAST SURGICAL HISTORY: 1. Thyroidectomy. 2. Hysterectomy. 3. Gallbladder surgery. 4. Rotator cuff repair on the left upper extremity in April of 2018. 5. Finger and toe surgeries for arthritis. 6. Tonsillectomy as a child. PRE-HOSPITAL MEDICATIONS: 1. Lansoprazole 30 mg p.o. daily. 2. Levothyroxine 137 mcg p.o. daily. 3. Losartan/hydrochlorothiazide 1 p.o. daily. 4. Potassium 10 mEq p.o. daily. 5. Acetaminophen 1000 mg p.o. q.6 hours p.r.n. 6. Escitalopram 20 mg p.o. q.h.s. 7. Hydrocortisone 10 mg p.o. b.i.d. 8. Hydroxychloroquine 200 mg p.o. b.i.d. 9. Pregabalin 225 mg p.o. q.h.s. 10. Sulfamethoxazole/trimethoprim 800/160 one tab p.o. b.i.d. 11. Celecoxib 200 mg p.o. b.i.d. ADMISSION MEDICATIONS: 1. Acetaminophen 1000 mg p.o. q.6 hours p.r.n. 2. Enoxaparin 40 mg subcutaneous daily. 3. Escitalopram 20 mg p.o. q.h.s. 4. Fluticasone nasal 2 sprays each naris daily. 5. Furosemide 40 mg p.o. b.i.d. 6. Hydrocortisone 10 mg p.o. b.i.d. 7. Hydroxychloroquine 200 mg p.o. b.i.d. 8. Ipratropium/albuterol nebulizer q.6 hours. 9. Lansoprazole 30 mg p.o. daily. 10. Levothyroxine 137 mcg p.o. daily. 11. Losartan 50 mg p.o. daily. 12. Oxycodone 5 to 10 mg p.o. q.3 hours p.r.n. 13. Polyethylene glycol 17 g p.o. daily. 14. Potassium 10 mEq p.o. daily. 15. Pregabalin 225 mg p.o. q.h.s. 16. Senna/docusate 1 to 2 tabs p.o. b.i.d. ALLERGIES: There is an allergy listed to hydrocodone. PSYCHOSOCIAL HISTORY: She is . She lives with her in [place]. They are visiting their daughter in [place]. She is a retired school fundraising director. She has a history of smoking. There are multiple steps in the home in [place] and no steps in the home in [place]. FAMILY HISTORY: Noncontributory. REVIEW OF SYSTEMS: She has mild pain in her right arm and right hip. She otherwise is not in pain. She has no cough. She feels dyspnea with activity. She has no chest pain or palpitations. Her weight has been stable recently. She feels thirsty. She is especially thirsty after nebulizer treatments. She has a good appetite. There is no nausea, vomiting, constipation, or diarrhea. There is no dysuria or urinary frequency. Other than her arm and her leg, she has no joint pain or joint swelling. She is in good spirits. There is no skin rash and no skin breakdown. Otherwise, a 10-point review of systems is negative. PHYSICAL EXAMINATION: VITAL SIGNS: Not yet available in the chart. This morning in the hospital, blood pressure was 115/63, heart rate was 63, respiratory rate was 19, oxygen saturation was 95% on 3 L per nasal cannula, temperature was 36.7 degrees centigrade. Her weight was 65.8 kg for a body mass index of 24.9. GENERAL: This is a well-nourished, well-developed woman, dressed in street clothes, lying in bed, cooperative, and in no acute distress. HEENT: Extraocular movements are intact. Pupils are equal, round, reactive to light. Mucous membranes are somewhat dry. Dentition is in good condition. She has an uncrowded airway, Mallampati class 1. NECK: Supple. HEART: There is a regular rate and rhythm. There is JVD nearly to the angle of the jaw. There is no edema. LUNGS: There are crackles in the left lower lobe. Otherwise, lungs are clear to auscultation bilaterally. ABDOMEN: Soft, nontender, nondistended with normoactive bowel sounds and no hepatosplenomegaly. EXTREMITIES: There is no cyanosis, clubbing, or edema. Radial pulses are 2+ bilaterally. Dorsalis pedis pulses are trace bilaterally. NEUROLOGIC: She is alert and oriented x3. Cranial nerves 2-12 are grossly intact. There is no focal weakness. Sensation is intact to light touch. CURRENT LEVEL OF FUNCTION: Per the preadmission screen: Eating required setup and voice cues and otherwise was done with modified independence using assistive devices. Grooming required setup. Bathing required contact guard for transfers. Upper body dressing and lower body dressing were done with minimal assist and voice cues. Toileting required total assist for clothing management. She was continent of bowel and bladder. Bed mobility required minimal assist with voice cues. Transfers required contact guard assist with voice cues due to buckling of the hip and losing balance. She was using a cane. She had independent seated balance but required minimal assist for standing balance. Endurance was fair. She was able to ambulate 300 feet with contact guard to minimal assist using a cane. She had 2 episodes of path deviation and mild loss of balance with minimal assist to correct. She maintain oxygenation greater than 90% on 3 L. She was able to climb and descend 8 stairs with no rail using a cane with minimal assist and voice cues and 4 steps with 1 rail and contact guard assist. On today's exam, she appears to have improved bed mobility, but otherwise, there are no significant changes from the preadmission screen. IMPRESSION: This is a 73-year-old woman with rheumatoid arthritis and pulmonary hypertension, who had a mechanical fall at home and fractured her right humerus and right proximal femur. She had open reduction/internal fixation and pinning of the femur fracture. She is treated conservatively for the humerus fracture and is nonweightbearing on the right upper extremity. She has considerable debility regarding mobility and activities of daily living and is appropriate for inpatient rehabilitation. She has pulmonary hypertension, mitral regurgitation, and hypoxemia. It is unclear the extent to which this might limit her activity, but she will likely discharge home on oxygen. Her goal is to complete a rehabilitation stay and then to discharge home initially to her daughter's home until she completes followup with Orthopedics and Cardiology, and then to return to [place] with her . For a safe discharge, she will need to progress to modified independence for activities of daily living and functional mobility using a cane on level and unlevel surfaces. She will have therapy with physical therapy and occupational therapy for 90 minutes per day for each discipline on 5-7 days of the week. Her expected duration of stay is 5-7 days. It is anticipated that upon discharge, she will continue to benefit from home health services including occupational therapy and physical therapy. PLAN: 1. Debility following fall with right femur and right humerus fracture, nonweightbearing on the right upper extremity. PT and OT to optimize mobility and activities of daily living toward the modified independence level. 2. Pulmonary hypertension and mitral valve regurgitation. Continue furosemide per Cardiology recommendations. We will discuss further with Cardiology regarding duration of furosemide. Plan is for her to diurese for some period of time and then repeat an echocardiogram. She is likely a candidate for mitral valve replacement. It also should be elucidated whether there are other etiologies of pulmonary hypertension; for instance, rheumatoid lung or adverse effect of sulfamethoxazole. 3. Rheumatoid arthritis has been stable on her current medications with hydrocortisone and sulfasalazine. We will continue these medications. 4. Pain control. Continue acetaminophen and oxycodone as ordered out of the hospital. 5. Likely osteoporosis. Advised followup bone density scan after her discharge. Will check a vitamin D level. 6. Prophylaxis. Continue enoxaparin. Orthopedic salesforce consultant advised aspirin 325 mg per day upon discharge. 7. Followup. She will see orthopedic surgeon, Dr. Cruz, 14 to 21 days after surgery for a wound check and followup on her fractures. She will follow up with Cardiology and Pulmonology after she returns to [place]. Prior to returning to [place], she will see psychologist experimental, Dr. Epperson. She should have a repeat TSH regarding suppressed TSH in approximately 6 weeks. The appointment with Dr. Epperson is set for 02/08/2019. /[id number]/MODL MTDD
[2019-01-31] MEDS: FUROSEMIDE 40 MG TAB PO SCH (15:06)
[2019-01-31] MEDS ORDERED: IPRATROPIUM/ALBUTEROL 3 ML DEYVIAL IH SCH (18:00)
[2019-01-31] MEDS: IPRATROPIUM/ALBUTEROL 4GM MDI IH SCH (20:53)
[2019-01-31] MEDS: PREGABALIN 75 MG CAP PO SCH (20:59)
[2019-01-31] MEDS: HYDROXYCHLOROQUINE SULFATE 200 MG TAB PO SCH (20:59)
[2019-01-31] MEDS: HYDROCORTISONE 10 MG TAB PO SCH (20:59)
[2019-01-31] MEDS: SENNOSIDES/DOCUSATE SODIUM TAB PO SCH (21:04)
[2019-01-31] MEDS: oxyCODONE IR 5 MG TAB PO PRN (21:06)
[2019-01-31] MEDS: ACETAMINOPHEN 500 MG TAB PO PRN (21:07)
[2019-02-01] MEDS: IPRATROPIUM/ALBUTEROL 4GM MDI IH SCH ×4 (05:46→20:49)
[2019-02-01] MEDS: LEVOTHYROXINE 137 MCG TAB PO SCH (05:47)
[2019-02-01] MEDS: ACETAMINOPHEN 500 MG TAB PO PRN ×2 (08:25→15:16)
[2019-02-01] MEDS: PANTOPRAZOLE SODIUM 40 MG TAB PO SCH (08:25)
[2019-02-01] MEDS: LOSARTAN POTASSIUM 50 MG TAB PO SCH (08:25)
[2019-02-01] MEDS: HYDROXYCHLOROQUINE SULFATE 200 MG TAB PO SCH ×2 (08:26→20:45)
[2019-02-01] MEDS: HYDROCORTISONE 10 MG TAB PO SCH ×2 (08:26→20:43)
[2019-02-01] MEDS: POTASSIUM CL 10 MEQ TAB PO SCH (08:26)
[2019-02-01] MEDS: FUROSEMIDE 40 MG TAB PO SCH ×2 (08:26→15:15)
[2019-02-01] MEDS: CHOLECALCIFEROL VIT D3 2,000 UNITS TAB/CAP PO SCH (08:26)
[2019-02-01] MEDS: FLUTICASONE NASAL 120 SPRAYS/16 GM MDI EACHNARE SCH (08:28)
[2019-02-01] MEDS: SENNOSIDES/DOCUSATE SODIUM TAB PO SCH (08:28)
[2019-02-01] MEDS ORDERED: ENOXAPARIN 40 MG/0.4 ML SYR SC SCH (09:00)
[2019-02-01] MEDS ORDERED: SENNOSIDES/DOCUSATE SODIUM TAB PO PRN (12:01)
--- NOTE | 2019-02-01 12:04 | SOAPPROG ---
SOAP Progress Note Assessment/Plan: Assessment: Debility following fall with right femur and right humerus fracture, nonweightbearing on the right upper extremity. PT and OT to optimize mobility and activities of daily living toward the modified independence level. Pulmonary hypertension and mitral valve regurgitation. Continue furosemide per Cardiology recommendations. Plan is for her to diurese for some period of time and then repeat an echocardiogram. She is likely a candidate for mitral valve replacement. There may be other etiologies of pulmonary hypertension; for instance, rheumatoid lung or adverse effect of sulfamethoxazole. Further evaluation and interventions will take place after discharge home to [place], [place]. Rheumatoid arthritis has been stable on her current medications with hydrocortisone and sulfasalazine. We will continue these medications. Pain control. Continue acetaminophen and oxycodone as ordered out of the hospital. Likely osteoporosis. Advised followup bone density scan after her discharge. Low vitamin D level on labs 01/31/2019. Initiated vitamin-D replacement, 2018. Prophylaxis. Ambulating greater than 150 ft.. Discontinue enoxaparin starting 02/02/2019 and initiate aspirin 325 mg per day, per plan of orthopedic surgeon in the hospital.. Followup. She will see orthopedic surgeon, Dr. Cruz, 14 to 21 days after surgery for a wound check and followup on her fractures. She will follow up with Cardiology and Pulmonology after she returns to [place]. Prior to returning to [place], she will see supervising librarian, Dr. Epperson. She should have a repeat TSH regarding suppressed TSH in approximately 6 weeks. The appointment with Dr. Epperson is set for 02/08/2019. 02/01/19 15:44 Subjective: Frederic sore and could not get comfortable overnight. Eventually took acetaminophen with improvement. Has constipation times several days but does not want laxatives as her experience is laxatives give her uncontrolled watery diarrhea. Otherwise she is without complaints. She does not feel dyspneic and has no cough. No fevers or chills. Objective: Vital Signs Temp Pulse Resp BP Pulse Ox 36.7 C 62 16 137/66 H 92 02/01/19 09:04 02/01/19 10:23 02/01/19 10:23 02/01/19 09:04 02/01/19 10:23 01/31/19 02/01/19 02/02/19 05:59 05:59 05:59 Intake Total 1400 Output Total 2000 Balance -600 Physical Exam - Physical Exam General Appearance: WD/WN, alert, no apparent distress Respiratory: normal breath sounds, crackles (Left lower lobe), No rhonchi, No wheezing Cardiac/Chest: regular rate, rhythm, No edema, No JVD, No diastolic murmur, No systolic murmur Skin: normal color, warm/dry Neuro/Psych: alert, normal mood/affect, oriented x 3 ICD10 Worksheet Patient Problems: Problems Problem Status Onset Balance disorder Acute Closed right hip fracture Acute Fracture of proximal end of right humerus Acute Incontinence of bowel Acute Lacunar stroke Acute Paresthesia Acute Status migrainosus Acute
[2019-02-01] MEDS: ESCITALOPRAM OXALATE 10 MG TAB PO SCH (20:42)
[2019-02-01] MEDS: ACETAMINOPHEN 500 MG TAB PO SCH (20:42)
[2019-02-01] MEDS: oxyCODONE IR 5 MG TAB PO PRN (20:43)
[2019-02-01] MEDS: PREGABALIN 75 MG CAP PO SCH (20:45)
[2019-02-02] MEDS: oxyCODONE IR 5 MG TAB PO PRN ×3 (00:56→22:07)
[2019-02-02] MEDS: IPRATROPIUM/ALBUTEROL 4GM MDI IH SCH ×4 (05:34→21:00)
[2019-02-02] MEDS: LEVOTHYROXINE 137 MCG TAB PO SCH (05:37)
[2019-02-02] MEDS: PANTOPRAZOLE SODIUM 40 MG TAB PO SCH (08:53)
[2019-02-02] MEDS: HYDROXYCHLOROQUINE SULFATE 200 MG TAB PO SCH ×2 (08:53→20:34)
[2019-02-02] MEDS: POTASSIUM CL 10 MEQ TAB PO SCH (08:54)
[2019-02-02] MEDS: LOSARTAN POTASSIUM 50 MG TAB PO SCH (08:54)
[2019-02-02] MEDS: HYDROCORTISONE 10 MG TAB PO SCH ×2 (08:54→20:34)
[2019-02-02] MEDS: ASPIRIN EC 325 MG TAB PO SCH (08:54)
[2019-02-02] MEDS: CHOLECALCIFEROL VIT D3 2,000 UNITS TAB/CAP PO SCH (08:54)
[2019-02-02] MEDS: FUROSEMIDE 40 MG TAB PO SCH ×2 (08:54→14:51)
[2019-02-02] MEDS: FLUTICASONE NASAL 120 SPRAYS/16 GM MDI EACHNARE SCH (08:55)
--- NOTE | 2019-02-02 09:16 | PDOREHIP ---
Admission [facility] - Admission - 3 Day Assessment Period Admission Date/Day 1: 01/31/19 Day 2: 02/01/19 Day 3: 02/02/19 - Active Diagnoses Comorbidities and Co-existing Conditions at Admission: 31802. None of the Above - Skin Conditions Unhealed Pressure Ulcer (1 or more/Stage 1 or >)-Admission: 0. No # Stage 1 Pressure Ulcers-Admission: 0 # Stage 2 Pressure Ulcers-Admission: 0 # Stage 3 Pressure Ulcers-Admission: 0 # Stage 4 Pressure Ulcers-Admission: 0 # Unstageable Pressure Ulcers (Non-remove Dress)-Admission: 0 # Unstageable Pressure Ulcers (Slough/Eschar)-Admission: 0 # Unstageable Pressure Ulcers (Deep Tissue Injury)-Admission: 0
[2019-02-02] MEDS: ACETAMINOPHEN 500 MG TAB PO PRN (09:57)
--- NOTE | 2019-02-02 11:38 | SOAPPROG ---
SOAP Progress Note Assessment/Plan: Assessment: Debility following fall with right femur and right humerus fracture, nonweightbearing on the right upper extremity. * Initial functional independence measure is 82 on 02/02/2019. Supervision for bed mobility. Ambulated greater than 150 ft with a cane and supervision. Climbed and descended 12 stairs. Did grooming and hygiene standing with standby assist. Upper body dressing required minimal assist, lower body dressing required contact guard to minimal assist. Shower transfer required contact assist and she bathes with minimal assist. Toilet transfer required standby assist and toileting required minimal assist for clothing management. * Continue PT and OT to optimize mobility and activities of daily living toward the modified independence level. Pulmonary hypertension and mitral valve regurgitation. Continue furosemide per Cardiology recommendations. Plan is for her to diurese for some period of time and then repeat an echocardiogram. She is likely a candidate for mitral valve replacement. There may be other etiologies of pulmonary hypertension, including rheumatoid lung or adverse effect of sulfamethoxazole. Further evaluation and interventions will take place after discharge home to [place], [place]. * Continue oxygen. Will need to arrange for oxygen for her use during her drive back to [place]. She may not need oxygen when she is at a lower elevation. Irregular heartbeat. She had an EKG with PVCs in the hospital. On monitoring she was mostly in sinus rhythm but also had dysrhythmias noted that were not atrial fibrillation. Will recheck EKG, 02/02/2019. Rheumatoid arthritis has been stable on her current medications with hydrocortisone and sulfasalazine. Pain control. Continue acetaminophen and oxycodone as ordered out of the hospital. Likely osteoporosis. Advised followup bone density scan after her discharge. Low vitamin D level on labs 01/31/2019. Initiated vitamin-D replacement, 2018. Prophylaxis. Ambulating greater than 150 ft. Discontinued enoxaparin starting 02/02/2019 and initiated aspirin 325 mg per day, per plan of orthopedic surgeon in the hospital.. DISPOSITION: Attended staffing, 15 min. Discussed with case management, nursing, dietitian, PT, OT. Visiting [place] where her daughter lives from [place]. Planning to return to [place] by car. Will need to be able to do a car transfer and to have modified independence with ADLs. Need to arrange for oxygen for drive as they will be crossing [place]. Tentative discharge date set for 02/06/2019. Followup. She will see orthopedic surgeon, Dr. Cruz, 14 to 21 days after surgery for a wound check and followup on her fractures. She will follow up with Cardiology and Pulmonology after she returns to [place]. Prior to returning to [place], she will see sleeve machine tender, Dr. Epperson. She should have a repeat TSH regarding suppressed TSH in approximately 6 weeks. The appointment with Dr. Epperson is set for 02/08/2019. 02/02/19 11:50 Subjective: No complaints. Slept well. Not in pain. No cough or dyspnea Objective: Vital Signs Temp Pulse Resp BP Pulse Ox 36.4 C 57 L 16 123/66 H 93 02/02/19 05:39 02/02/19 09:51 02/02/19 09:51 02/02/19 05:39 02/02/19 09:51 02/01/19 02/02/19 02/03/19 05:59 05:59 05:59 Intake Total 1400 1500 Output Total 2000 200 Balance -600 1300 - Time Spent With Patient Time Spent With Patient: Greater than 35 minutes floor time today, including more than 50% of time in coordination of care during staffing, and counseling patient. Physical Exam - Physical Exam General Appearance: WD/WN, alert, no apparent distress Respiratory: normal breath sounds, No crackles, No rhonchi, No wheezing Cardiac/Chest: regular rate, rhythm, diastolic murmur, No edema, No JVD Skin: normal color, warm/dry Neuro/Psych: alert, normal mood/affect, oriented x 3 ICD10 Worksheet Patient Problems: Problems Problem Status Onset Balance disorder Acute Closed right hip fracture Acute Fracture of proximal end of right humerus Acute Incontinence of bowel Acute Lacunar stroke Acute Paresthesia Acute Status migrainosus Acute
[2019-02-02] MEDS: PREGABALIN 75 MG CAP PO SCH (20:34)
[2019-02-02] MEDS: ACETAMINOPHEN 500 MG TAB PO SCH (20:34)
[2019-02-02] MEDS: ESCITALOPRAM OXALATE 10 MG TAB PO SCH (20:34)
[2019-02-03] MEDS: IPRATROPIUM/ALBUTEROL 4GM MDI IH SCH ×4 (05:41→20:38)
[2019-02-03] MEDS: LEVOTHYROXINE 137 MCG TAB PO SCH (06:05)
[2019-02-03] MEDS: HYDROCORTISONE 10 MG TAB PO SCH ×2 (08:01→20:58)
[2019-02-03] MEDS: HYDROXYCHLOROQUINE SULFATE 200 MG TAB PO SCH ×2 (08:01→20:58)
[2019-02-03] MEDS: ASPIRIN EC 325 MG TAB PO SCH (08:01)
[2019-02-03] MEDS: PANTOPRAZOLE SODIUM 40 MG TAB PO SCH (08:05)
[2019-02-03] MEDS: CHOLECALCIFEROL VIT D3 2,000 UNITS TAB/CAP PO SCH (08:06)
[2019-02-03] MEDS: FUROSEMIDE 40 MG TAB PO SCH ×2 (08:06→14:03)
[2019-02-03] MEDS: LOSARTAN POTASSIUM 50 MG TAB PO SCH (08:06)
[2019-02-03] MEDS: POTASSIUM CL 10 MEQ TAB PO SCH (08:07)
[2019-02-03] MEDS: FLUTICASONE NASAL 120 SPRAYS/16 GM MDI EACHNARE SCH (08:08)
--- NOTE | 2019-02-03 10:25 | HOSPPROG ---
Hospitalist Progress Note Assessment/Plan: Debility following fall with right femur and right humerus fracture, nonweightbearing on the right upper extremity. * Initial functional independence measure is 82 on 02/02/2019. Supervision for bed mobility. Ambulated greater than 150 ft with a cane and supervision. Climbed and descended 12 stairs. Did grooming and hygiene standing with standby assist. Upper body dressing required minimal assist, lower body dressing required contact guard to minimal assist. Shower transfer required contact assist and she bathes with minimal assist. Toilet transfer required standby assist and toileting required minimal assist for clothing management. * Continue PT and OT to optimize mobility and activities of daily living toward the modified independence level. Pulmonary hypertension and mitral valve regurgitation. Continue furosemide per Cardiology recommendations. Plan is for her to diurese for some period of time and then repeat an echocardiogram. She is likely a candidate for mitral valve replacement. There may be other etiologies of pulmonary hypertension, including rheumatoid lung or adverse effect of sulfamethoxazole. Further evaluation and interventions will take place after discharge home to [place], [place]. * Continue oxygen. Will need to arrange for oxygen for her use during her drive back to [place]. She may not need oxygen when she is at a lower elevation. Irregular heartbeat. She had an EKG with PVCs in the hospital. On monitoring she was mostly in sinus rhythm but also had dysrhythmias noted that were not atrial fibrillation. Will recheck EKG, 02/02/2019. Rheumatoid arthritis has been stable on her current medications with hydrocortisone and sulfasalazine. Pain control. Continue acetaminophen and oxycodone as ordered out of the hospital. Likely osteoporosis. Advised followup bone density scan after her discharge. Low vitamin D level on labs 01/31/2019. Initiated vitamin-D replacement, 2018. Prophylaxis. Ambulating greater than 150 ft. Discontinued enoxaparin starting 02/02/2019 and initiated aspirin 325 mg per day, per plan of orthopedic surgeon in the hospital.. 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 Objective: Vital Signs Temp Pulse Resp BP Pulse Ox 36.6 C 56 L 15 164/88 H 93 02/03/19 06:23 02/03/19 06:23 02/03/19 06:23 02/03/19 08:06 02/03/19 06:23 02/02/19 02/03/19 02/04/19 05:59 05:59 05:59 Intake Total 1500 1100 200 Output Total 200 Balance 1300 1100 200 - Physical Exam Constitutional: no apparent distress, appears nourished, not in pain Eyes: anicteric sclera, EOMI Ears, Nose, Mouth, Throat: moist mucous membranes Cardiovascular: regular rate and rhythym Respiratory: no respiratory distress, no rales or rhonchi, clear to auscultation Gastrointestinal: normoactive bowel sounds Skin: warm Neurologic: AAOx3 ICD10 Worksheet Patient Problems: Problems Problem Status Onset Balance disorder Acute Closed right hip fracture Acute Fracture of proximal end of right humerus Acute Incontinence of bowel Acute Lacunar stroke Acute Paresthesia Acute Status migrainosus Acute
[2019-02-03] MEDS: ACETAMINOPHEN 500 MG TAB PO PRN (10:28)
[2019-02-03] MEDS: oxyCODONE IR 5 MG TAB PO PRN ×2 (19:16→20:03)
[2019-02-03] MEDS: ESCITALOPRAM OXALATE 10 MG TAB PO SCH (20:57)
[2019-02-03] MEDS: PREGABALIN 75 MG CAP PO SCH (20:58)
[2019-02-03] MEDS: ACETAMINOPHEN 500 MG TAB PO SCH (20:58)
[2019-02-04] MEDS: oxyCODONE IR 5 MG TAB PO PRN ×4 (03:20→20:05)
[2019-02-04] MEDS: LEVOTHYROXINE 137 MCG TAB PO SCH (05:56)
[2019-02-04] MEDS: IPRATROPIUM/ALBUTEROL 4GM MDI IH SCH ×4 (05:59→21:27)
[2019-02-04] MEDS: PANTOPRAZOLE SODIUM 40 MG TAB PO SCH (08:27)
[2019-02-04] MEDS: POTASSIUM CL 10 MEQ TAB PO SCH (08:28)
[2019-02-04] MEDS: HYDROXYCHLOROQUINE SULFATE 200 MG TAB PO SCH ×2 (08:28→20:04)
[2019-02-04] MEDS: LOSARTAN POTASSIUM 50 MG TAB PO SCH (08:28)
[2019-02-04] MEDS: CHOLECALCIFEROL VIT D3 2,000 UNITS TAB/CAP PO SCH (08:28)
[2019-02-04] MEDS: HYDROCORTISONE 10 MG TAB PO SCH ×2 (08:28→20:04)
[2019-02-04] MEDS: ASPIRIN EC 325 MG TAB PO SCH (08:28)
[2019-02-04] MEDS: FUROSEMIDE 40 MG TAB PO SCH ×2 (08:28→14:25)
[2019-02-04] MEDS: FLUTICASONE NASAL 120 SPRAYS/16 GM MDI EACHNARE SCH (08:29)
--- NOTE | 2019-02-04 09:18 | HOSPPROG ---
Hospitalist Progress Note Assessment/Plan: Debility following fall with right femur and right humerus fracture, nonweightbearing on the right upper extremity. * Initial functional independence measure is 82 on 02/02/2019. Supervision for bed mobility. Ambulated greater than 150 ft with a cane and supervision. Climbed and descended 12 stairs. Did grooming and hygiene standing with standby assist. Upper body dressing required minimal assist, lower body dressing required contact guard to minimal assist. Shower transfer required contact assist and she bathes with minimal assist. Toilet transfer required standby assist and toileting required minimal assist for clothing management. * Continue PT and OT to optimize mobility and activities of daily living toward the modified independence level. Pulmonary hypertension and mitral valve regurgitation. Continue furosemide per Cardiology recommendations. Plan is for her to diurese for some period of time and then repeat an echocardiogram. She is likely a candidate for mitral valve replacement. There may be other etiologies of pulmonary hypertension, including rheumatoid lung or adverse effect of sulfamethoxazole. Further evaluation and interventions will take place after discharge home to [place], [place]. * Continue oxygen. Will need to arrange for oxygen for her use during her drive back to [place]. She may not need oxygen when she is at a lower elevation. Irregular heartbeat. She had an EKG with PVCs in the hospital. On monitoring she was mostly in sinus rhythm but also had dysrhythmias noted that were not atrial fibrillation. Will recheck EKG, 02/02/2019. Rheumatoid arthritis has been stable on her current medications with hydrocortisone and sulfasalazine. Pain control. Continue acetaminophen and oxycodone as ordered out of the hospital. Likely osteoporosis. Advised followup bone density scan after her discharge. Low vitamin D level on labs 01/31/2019. Initiated vitamin-D replacement, 2018. Prophylaxis. Ambulating greater than 150 ft. Discontinued enoxaparin starting 02/02/2019 and initiated aspirin 325 mg per day, per plan of orthopedic surgeon in the hospital.. Subjective: no new complaints Objective: Vital Signs Temp Pulse Resp BP Pulse Ox 36.6 C 77 18 119/70 91 L 02/04/19 08:00 02/04/19 08:00 02/04/19 08:00 02/04/19 08:28 02/04/19 08:37 02/03/19 02/04/19 02/05/19 05:59 05:59 05:59 Intake Total 1100 1540 Balance 1100 1540 - Physical Exam Constitutional: no apparent distress, appears nourished, not in pain Eyes: anicteric sclera Cardiovascular: regular rate and rhythym Respiratory: no respiratory distress, other (slight crackles left base) Skin: warm Neurologic: AAOx3 Psychiatric: interacting appropriately, not anxious, not encephalopathic, thought process linear ICD10 Worksheet Patient Problems: Problems Problem Status Onset Balance disorder Acute Closed right hip fracture Acute Fracture of proximal end of right humerus Acute Incontinence of bowel Acute Lacunar stroke Acute Paresthesia Acute Status migrainosus Acute
[2019-02-04] MEDS: ACETAMINOPHEN 500 MG TAB PO PRN (12:36)
[2019-02-04] MEDS: ACETAMINOPHEN 500 MG TAB PO SCH (20:03)
[2019-02-04] MEDS: PREGABALIN 75 MG CAP PO SCH (20:04)
[2019-02-04] MEDS: ESCITALOPRAM OXALATE 10 MG TAB PO SCH (20:04)
[2019-02-05] MEDS: LEVOTHYROXINE 137 MCG TAB PO SCH (06:14)
[2019-02-05] MEDS: IPRATROPIUM/ALBUTEROL 4GM MDI IH SCH ×4 (06:17→19:52)
[2019-02-05] MEDS: ASPIRIN EC 325 MG TAB PO SCH (08:41)
[2019-02-05] MEDS: FLUTICASONE NASAL 120 SPRAYS/16 GM MDI EACHNARE SCH (08:42)
[2019-02-05] MEDS: CHOLECALCIFEROL VIT D3 2,000 UNITS TAB/CAP PO SCH (08:42)
[2019-02-05] MEDS: FUROSEMIDE 40 MG TAB PO SCH ×2 (08:42→14:44)
[2019-02-05] MEDS: HYDROCORTISONE 10 MG TAB PO SCH ×2 (08:43→20:49)
[2019-02-05] MEDS: HYDROXYCHLOROQUINE SULFATE 200 MG TAB PO SCH ×2 (08:43→20:49)
[2019-02-05] MEDS: LOSARTAN POTASSIUM 50 MG TAB PO SCH (08:44)
[2019-02-05] MEDS: POTASSIUM CL 10 MEQ TAB PO SCH (08:48)
[2019-02-05] MEDS: PANTOPRAZOLE SODIUM 40 MG TAB PO SCH (08:48)
[2019-02-05] MEDS: ACETAMINOPHEN 500 MG TAB PO PRN (09:58)
--- NOTE | 2019-02-05 11:16 | PDHOMEO2F ---
Home Oxygen Face to Face Home Orders: I certify that a physician or a nurse practitioner or physician's clinical trial assistant has had a [id number] encounter with this patient on the date of this order due to the diagnosis listed, which relates to the primary reason the patient requires home oxygen. Alternative treatments have been tried, or considered, and deemed ineffective. It is anticipated that supplemental oxygen will result in improvement with treatment. Home oxygen qualifying diagnosis: Pulmonary hypertension SpO2 on room air (%): 88 Frequency of home oxygen needed: continuous Home oxygen liters per minute: 3 Home oxygen delivery device: nasal cannula Concentrator: Yes E-tanks for mobility and back up: Yes If ordering portable O2, is the patient mobile in the home?: Yes I certify that, based on these findings, the home oxygen is medically necessary for this patient for the following length of time. Length of time home oxygen needed: 3 months
--- NOTE | 2019-02-05 12:33 | SOAPPROG ---
SOAP Progress Note Assessment/Plan: Assessment: Debility following fall with right femur and right humerus fracture, nonweightbearing on the right upper extremity. * Initial functional independence measure is 82 on 02/02/2019. Supervision for bed mobility. Ambulated greater than 150 ft with a cane and supervision. Climbed and descended 12 stairs. Did grooming and hygiene standing with standby assist. Upper body dressing required minimal assist, lower body dressing required contact guard to minimal assist. Shower transfer required contact assist and she bathes with minimal assist. Toilet transfer required standby assist and toileting required minimal assist for clothing management. * Continue PT and OT to optimize mobility and activities of daily living toward the modified independence level. Pulmonary hypertension and mitral valve regurgitation. Continue furosemide per Cardiology recommendations. Plan is for her to diurese for some period of time and then repeat an echocardiogram. She is likely a candidate for mitral valve replacement. There may be other etiologies of pulmonary hypertension, including rheumatoid lung or adverse effect of sulfamethoxazole. Further evaluation and interventions will take place after discharge home to [place], [place]. * Continue oxygen. Will need to arrange for oxygen for her use during her drive back to [place]. She may not need oxygen when she is at a lower elevation. Irregular heartbeat. She had an EKG with PVCs in the hospital. On monitoring she was mostly in sinus rhythm but also had dysrhythmias noted that were not atrial fibrillation. * EKG 02/02/2019 NSR. Rheumatoid arthritis has been stable on her current medications with hydrocortisone and sulfasalazine. Pain control. Continue acetaminophen and oxycodone as ordered out of the hospital. Likely osteoporosis. Advised followup bone density scan after her discharge. Low vitamin D level on labs 01/31/2019. Initiated vitamin-D replacement, 2018. Prophylaxis. Ambulating greater than 150 ft. Discontinued enoxaparin starting 02/02/2019 and initiated aspirin 325 mg per day, per plan of orthopedic surgeon in the hospital.. DISPOSITION: Attended staffing, 15 min, 02/02/2019. Discussed with case management, nursing, dietitian, PT, OT. She and her are visiting her daughter in [place], from [place]. Planning to return to [place] by car. Will need to be able to do a car transfer and to have modified independence with ADLs. Need to arrange for oxygen for drive as they will be crossing [place]. Discharging 02/06/2019. Followup. She will see orthopedic surgeon, Dr. Cruz, 14 to 21 days after surgery for a wound check and followup on her fractures. She will follow up with Cardiology and Pulmonology after she returns to [place], where her primary care physician is Dr. Quan Miller.. Prior to returning to [place], she will see clinical trial head, Dr. Epperson. She should have a repeat TSH regarding suppressed TSH in approximately 6 weeks. The appointment with Dr. Epperson is set for 02/08/2019. 02/05/19 12:26 Subjective: No complaints. Sleeping well. No cough or dyspnea, no fevers or chills. Pain management is adequate. Objective: Vital Signs Temp Pulse Resp BP Pulse Ox 37.0 C 69 18 132/67 H 91 L 02/05/19 08:00 02/05/19 08:00 02/05/19 08:00 02/05/19 08:44 02/05/19 08:00 02/04/19 02/05/19 02/06/19 05:59 05:59 05:59 Intake Total 1540 1380 Balance 1540 1380 Physical Exam - Physical Exam General Appearance: WD/WN, alert, no apparent distress Respiratory: normal breath sounds, No crackles, No rhonchi, No wheezing Cardiac/Chest: regular rate, rhythm, No edema, No diastolic murmur, No systolic murmur Skin: normal color, warm/dry Neuro/Psych: alert, normal mood/affect, oriented x 3 ICD10 Worksheet Patient Problems: Problems Problem Status Onset Balance disorder Acute Closed right hip fracture Acute Fracture of proximal end of right humerus Acute Incontinence of bowel Acute Lacunar stroke Acute Paresthesia Acute Status migrainosus Acute
[2019-02-05] MEDS: oxyCODONE IR 5 MG TAB PO PRN ×2 (16:27→19:40)
[2019-02-05] MEDS: ACETAMINOPHEN 500 MG TAB PO SCH (20:48)
[2019-02-05] MEDS: PREGABALIN 75 MG CAP PO SCH (20:49)
[2019-02-05] MEDS: ESCITALOPRAM OXALATE 10 MG TAB PO SCH (20:49)
[2019-02-06] MEDS: oxyCODONE IR 5 MG TAB PO PRN (03:42)
[2019-02-06] MEDS: LEVOTHYROXINE 137 MCG TAB PO SCH (05:56)
[2019-02-06] MEDS: IPRATROPIUM/ALBUTEROL 4GM MDI IH SCH ×2 (06:01→11:42)
[2019-02-06] MEDS: PANTOPRAZOLE SODIUM 40 MG TAB PO SCH (08:20)
[2019-02-06] MEDS: FUROSEMIDE 40 MG TAB PO SCH (08:20)
[2019-02-06] MEDS: ASPIRIN EC 325 MG TAB PO SCH (08:21)
[2019-02-06] MEDS: HYDROCORTISONE 10 MG TAB PO SCH (08:21)
[2019-02-06] MEDS: HYDROXYCHLOROQUINE SULFATE 200 MG TAB PO SCH (08:22)
[2019-02-06] MEDS: LOSARTAN POTASSIUM 50 MG TAB PO SCH (08:22)
[2019-02-06] MEDS: CHOLECALCIFEROL VIT D3 2,000 UNITS TAB/CAP PO SCH (08:25)
[2019-02-06] MEDS: ACETAMINOPHEN 500 MG TAB PO PRN (08:25)
[2019-02-06] MEDS: POTASSIUM CL 10 MEQ TAB PO SCH (08:26)
[2019-02-06] MEDS: FLUTICASONE NASAL 120 SPRAYS/16 GM MDI EACHNARE SCH (08:27)
[2019-02-06 08:29] VITALS: BP 119/72
--- NOTE | 2019-02-06 13:55 | GDS ---
[f rep st] DISCHARGE SUMMARY ADMITTING DIAGNOSIS: Debility with right femur and humerus fractures, status post open reduction and internal fixation of the right femur. DISCHARGE DIAGNOSES: 1. Debility with right femur and humerus fractures, status post open reduction and internal fixation of the right femur. 2. Pulmonary hypertension and mitral valve regurgitation. 3. Rheumatoid arthritis. 4. Likely osteoporosis. COMPLICATIONS: None. CONSULTATIONS: None. PROCEDURES: None. HISTORY AND HOSPITAL COURSE: This patient was admitted from [facility]; she presented there on 01/26/2019. She had suffered a mechanical fall and a right femoral and r ight proximal humerus fracture. She had pinning of the femur and was allowed full weightbearing on t he right lower extremity. She was treated conservatively for the right humerus fracture and had nonw eightbearing status. In the hospital echocardiogram was done to evaluate shortness of breath and hyp oxia, and showed severe pulmonary hypertension with right ventricular systolic pressure of 74 mmHg an d severe mitral regurgitation. She also had grade [address] pulmonary angiogram s howed mild bronchiectasis. She was treated with bronchodilators as well as furosemide to reduce prel oad in hope of improving mitral valve function. She did well in rehabilitation. She was independent with bed mobility and transfers. She ambulated 300 feet on level terrain with a straight cane and standby assist for oxygen management. She climbed 8 steps with 1 railing and 1 cane with supervision only. She required the use of an assistive devic e, but had modified independence with the device for dressing, toileting and toilet transfers. She r equired cues to manage her oxygen with mobility related ADLs. Regarding pulmonary hypertension and mitral valve regurgitation, she was continued on furosemide. Sh chey eventually was needing as little as 1 L of oxygen at rest and with activity. Her vital signs remai ant stable with no hypotension or tachycardia on the diuretic. Rheumatoid arthritis was stable on hydrocortisone and sulfasalazine. Pain control was adequate. She continued to use oxycodone 1-3 times per day. With fractures from a ground level fall, it is likely that she has osteoporosis. Vitamin D level was checked and was low at 23.7. She was initiated on vitamin D replacement starting 01/31/2019. DISCHARGE PLAN: Condition upon discharge is good. Activity is ad gee, but she is to maintain nonwei ghtbearing on the right upper extremity. Diet is regular. ALLERGIES: There were no new allergies, but she continues to have an allergy listed to hydrocodone. DISCHARGE DISPOSITION: Home with her , eventually by car to [place], [place]. She will stay in the [place] area until she completes followups with Cardiology and Orthopedic Surgery. MEDICATIONS UPON DISCHARGE: 1. Acetaminophen 1000 mg p.o. q.6 hours p.r.n., and 1000 mg scheduled at bedtime. 2. Aspirin 325 mg p.o. daily until followup with Orthopedic Surgery. 3. Cholecalciferol 2000 units p.o. daily. 4. Escitalopram 20 mg p.o. at bedtime. 5. Fluticasone nasal spray 2 sprays each naris daily. 6. Furosemide 40 mg p.o. twice daily until followup with Cardiology. 7. Hydrocortisone 10 mg p.o. twice daily. 8. Hydroxychloroquine/sulfate 200 mg p.o. twice daily. 9. Ipratropium/albuterol metered-dose inhaler four times daily. 10. Lansoprazole 30 mg p.o. daily. 11. Levothyroxine 137 mcg p.o. daily. 12. Losartan 50 mg p.o. daily. 13. Oxycodone 10 mg p.o. q.3 hours p.r.n. 14. Polyethylene glycol 17 g p.o. daily. 15. Potassium chloride 10 mEq p.o. daily while on furosemide. 16. Pregabalin 225 mg p.o. at bedtime. 17. Senna/docusate 1 to 2 tabs p.o. twice daily. ISSUES TO BE ADDRESSED AT FOLLOWUP: 1. Mobility and functional status. She likely will need occupational therapy regarding her right up per extremity once weightbearing status is upgraded. 2. Pulmonary hypertension and mitral valve regurgitation. She has followup with cardiology Dr. Epperson on 02/08/2019, with decision at that time as to whether to continue furosemide. Any procedural reshma tments regarding these issues would wait until her return to [facility]. 3. Fractures status post ORIF of the right femur. She has follow up with orthopedic surgeon, Dr. Gordon on on 02/13/2019. 4. Suppressed TSH in the hospital. She should have a repeat TSH in approximately 5 weeks, which wou ld be early to mid March. 5. Likely osteoporosis. She is advised to have a bone density scan done after her return to [place] . Copy requested to: Quan Kowalski, [place] /[id number]/MODL
--- NOTE | 2019-02-08 09:50 | PDOREHIP ---
Admission [facility] - Admission - 3 Day Assessment Period Admission Date/Day 1: 01/31/19 Day 2: 02/01/19 Day 3: 02/02/19 - Active Diagnoses Comorbidities and Co-existing Conditions at Admission: [id number]. None of the Above Discharge [facility] - Discharge - 3 Day Assessment Period 2 Days Prior to Anticipated Discharge Date: 02/04/19 1 Day Prior to Anticipated Discharge Date: 02/05/19 Anticipated Discharge Date: 02/06/19 - Discharge Skin Conditions Unhealed Pressure Ulcer (1 or more/Stage 1 or >)-Discharge: 0. No # Stage 1 Pressure Ulcers-Discharge: 0 # Stage 2 Pressure Ulcers-Discharge: 0 # of These Stage 2 Pressure Ulcers Present on Admission: 0 # Stage 3 Pressure Ulcers-Discharge: 0 # of These Stage 3 Pressure Ulcers Present on Admission: 0 # Stage 4 Pressure Ulcers-Discharge: 0 # of These Stage 4 Pressure Ulcers Present on Admission: 0 # Unstageable Pressure Ulcers (Non-remove Dress)-Discharge: 0 # These Unstageable Pressure Ulcers (NRD)-Present on Admit: 0 # Unstageable Pressure Ulcers (Slough/Eschar)-Discharge: 0 # These Unstageable Pressure Ulcers(Slough) Present on Admit: 0 # Unstageable Pressure Ulcers (Deep Tissue Injury)-Discharge: 0 # These Unstageable Pressure Ulcers (DTI) Present on Admit: 0
== END 2019-02-06 12:38 | disposition still patient (30) | DRG 561 ==
LOC: F3E 13:12
PROVIDERS: ADMIT Internal Medicine Hospice and Palliative Medicine; ATTEND Internal Medicine Hospice and Palliative Medicine
PROC: F0636ZZ Communicative/Cognitive Integration Skills Treatment of Neurological System - Whole Body (ICD-10-PCS; principal; 2019-01-31)
PROC: F07M3ZZ Motor Function Treatment of Musculoskeletal System - Whole Body (ICD-10-PCS; principal; 2019-01-31)
DX: Z47.89 Encounter for other orthopedic aftercare (principal); M80.051D Age-related osteoporosis with current pathological fracture, right femur, subsequent encounter for fracture with routine healing; M80.021D Age-related osteoporosis with current pathological fracture, right humerus, subsequent encounter for fracture with routine healing; W01.0XXD Fall on same level from slipping, tripping and stumbling without subsequent striking against object, subsequent encounter; I34.0 Nonrheumatic mitral (valve) insufficiency; I27.29 Other secondary pulmonary hypertension; M05.60 Rheumatoid arthritis of unspecified site with involvement of other organs and systems; Z91.81 History of falling; M79.7 Fibromyalgia; I10 Essential (primary) hypertension; F32.9 Major depressive disorder, single episode, unspecified; E78.5 Hyperlipidemia, unspecified; G43.909 Migraine, unspecified, not intractable, without status migrainosus; Z85.850 Personal history of malignant neoplasm of thyroid; Z85.820 Personal history of malignant melanoma of skin; I27.20 Pulmonary hypertension, unspecified
CPT/HCPCS: 97110-GO; 97110-GP; 97116-GP; 97140-GO; 97161-GP; 97165-GO; 97530-GO; 97530-GP; 97535-GO; J1650